=== PATIENT | female | born 1955 | race Caucasian/White ===

== ENCOUNTER 2016-12-01 10:27 | Emergency (ER) | payer BC ==
[~2016-12-01] VITALS: Ht 160 cm; Wt 80.3 kg
[~2016-12-01 10:27] MED LIST: ATOR1TAB18 PO; ATOR1TAB21 PO; DRIS50002 PO; EFFE75CA75 OR; FLUC150T PO; HYDR12.55 PO; HYDR25TA6 OR; INSUH10VL SC; INSULANT SC; LANTINJ4 SC; LEVO75TA4 PO; LIPI20TA OR; LISI-542 PO; LISI5TAB OR; METF500T4 PO; NOVOINJ2 SC; NOVOINJ3 SC; NOVOLOG 100 UNIT/ML SQ; PERI2TAB PO; PLAV75TA38 PO; REGL5TAB2 PO; ROPI0.5T PO; SERT100T OR; SYNT88TA2 PO; TRAZ100T OR; VENL75CA47 PO
[2016-12-01] MEDS ORDERED: ASPI1TAB PO (11:00)
[2016-12-01] MEDS ORDERED: VITA50003 PO (11:00)
[2016-12-01] MEDS ORDERED: LANTINJ4 SC (11:00)
[2016-12-01] MEDS ORDERED: ASPIRIN 81 MG CHEW TABLET PO ONE (12:30)
[2016-12-01 12:45] LABS: BASO % 0.6 % (0.0-1.0); EOS # 0.2 K/mm3 (0.0-0.50); EOS % 3.3 % (0.0-3.0); LARGE UNSTAINED CELL # 0.1 K/mm3 (0.0-0.4); LARGE UNSTAINED CELL % 1.8 % (0.0-4.0); LYMPH # 0.5 K/mm3 (1.5-4.5); LYMPH % 9.1 % (24.0-44.0); MEAN CORPUSCULAR HEMOGLOBIN 34.4 pg (27.0-33.0); MEAN CORPUSCULAR HGB CONC 32.3 g/dl (32.0-36.5); MEAN CORPUSCULAR VOLUME 106.7 fl (80.0-96.0); MONO # 0.3 K/mm3 (0.0-0.8); MONO % 6.2 % (0.0-5.0); NEUTROPHILS # 3.8 K/mm3 (1.8-7.7); PLATELET COUNT, AUTOMATED 206 k/mm3 (150-450); RED CELL DISTRIBUTION WIDTH 13.7 % (11.5-14.5); WHITE BLOOD COUNT 4.8 K/mm3 (4.0-10.0)
[2016-12-01 12:54] LABS: ANION GAP 23 MEQ/L (8-16); BLOOD UREA NITROGEN 16 MG/DL (7-18); CALCIUM LEVEL 8.3 MG/DL (8.5-10.1); CARBON DIOXIDE LEVEL 14 MEQ/L (21-32); CHLORIDE LEVEL 99 MEQ/L (98-107); CREATININE FOR GFR 1.03 MG/DL (0.55-1.02); GLOMERULAR FILTRATION RATE 58.6 (>51); POTASSIUM SERUM 3.9 MEQ/L (3.5-5.1); SODIUM LEVEL 136 MEQ/L (136-145)
[2016-12-01 13:08] LABS: GLUCOSE, FASTING 449 MG/DL (70-105)
[2016-12-01] MEDS ORDERED: ISOVUE-370 76% 100ML VIAL (Q9967) As Ordered ONE (13:10)
[2016-12-01] MEDS ORDERED: HumuLIN R (REGULAR) INSULIN (NovoLIN R) **100U/ML** PER UNIT IV ONE (13:30)
--- NOTE | 2016-12-01 14:03 | REP ---
PORTABLE CHEST X-RAY: Single view. HISTORY: Chest pain. Comparison study: June 06, 2016. FINDINGS: EKG monitoring electrodes overlie the chest. The lungs are well inflated and free of infiltrate. Heart size is normal. Pleural angles are sharp. There is a zone of linear fibrosis versus discoid atelectasis in the right base. Lung mendoza are otherwise clear. No bony abnormality is seen. IMPRESSION: Linear density right base consistent with plate-like atelectasis or scarring. Otherwise no acute disease. Signed by Tyshawn Milton MD 12/01/2016 03:18 P
--- NOTE | 2016-12-01 14:12 | REP ---
CT ANGIOGRAM CHEST: 12/01/2016 CLINICAL HISTORY: 60-year female with chest pain, back pain. COMPARISON: Portable chest today and 06/06/2016. TECHNIQUE: The patient received a bolus of Isovue 370, 75 mL with thick slab MIP coronal and sagittal reconstructions. FINDINGS: There is dependent atelectatic change bilaterally. Some linear atelectasis in both lower lung zones. Minimal. No dense consolidation or parenchymal mass. No pulmonary nodule. There is no effusion or pneumothorax. The heart is not enlarged. There is no pericardial thickening or effusion. The aorta is without aneurysm or dissection. The main, right and left pulmonary arteries and the mediastinum are without filling defects. The lobar, segmental and subsegmental arteries are without filling defect. There is no axillary or supraclavicular mass. No hiatal hernia. In the upper abdomen, the visualized portions of liver and spleen are unremarkable. Tail of the pancreas is seen and intact. That portion of splenic flexure included is unremarkable. The bone windows show sternum, manubrium, medial clavicles, humeral heads, scapulae, ribs and spine without fracture or destructive lesion. There are marginal osteophytes throughout the mid and lower thoracic spine. IMPRESSION: 1. There is some minor basilar fibrotic change and dependent atelectasis without pleural effusion, acute infiltrate, pulmonary nodule or parenchymal mass. No pleural effusion or pneumothorax. 2. No CT evidence of pulmonary thromboembolism. 3. No CT evidence of aortic aneurysm or dissection. 4. No pathologic sized mediastinal or hilar adenopathy, acute bony finding or abnormalities of the visualized upper abdomen. Signed by Luis Carlos Lees MD 12/01/2016 05:14 P
[2016-12-01] MEDS ORDERED: NS 500 ML IV ONE (14:45)
[2016-12-01 15:05] LABS: VENOUS BASE EXCESS -3.3 (-2.0-2.0); VENOUS O2 SATURATION 97.4 % (60.0-80.0); VENOUS PARTIAL PRESSURE CO2 36.6 mmHg (38.0-50.0); VENOUS PARTIAL PRESSURE O2 94.8 mmHg (30.0-50.0); VENOUS STANDARD HCO3 21.7 MEQ/L; VENOUS TOTAL CO2 22.3 MEQ/L (24.0-28.0)
[2016-12-01 15:55] VITALS: BP 102/53
--- NOTE | 2016-12-02 08:12 | ECGEPIP ---
Stationary ECG Study [facility] - ED Test Date: 2016-12-01 Pat Name: MADELYN GUILLEN Department: Room: - Gender: F [employer] Developer: connor : 1955 Requested By: Adi Lorenzana Order Number: [id number] Reading MD: Adi Clemente Measurements Intervals [place] Rate: 96 P: 50 OR: 131 QRS: -2 QRSD: 82 T: 29 QT: 348 QTc: 441 Interpretive Statements SINUS RHYTHM LEFT ATRIAL ENLARGEMENT Electronically Signed On 12-02-2016 8:12:23 EDT by Adi Clemente
== END 2016-12-01 16:11 | disposition home or self-care (01) ==
LOC: M ED 10:51
DX: R07.9 Chest pain, unspecified (principal); I25.2 Old myocardial infarction; E11.9 Type 2 diabetes mellitus without complications; I10 Essential (primary) hypertension; E78.5 Hyperlipidemia, unspecified; Z87.891 Personal history of nicotine dependence; Z79.82 Long term (current) use of aspirin; Z79.4 Long term (current) use of insulin; Z79.899 Other long term (current) drug therapy
CPT/HCPCS: 36415; 71010; 71275; 80048; 82550; 82553; 82803; 85025; 93005; 93041; 99285; Q9967

== ENCOUNTER → 2016-12-04 | Outpatient (REF) | payer BC ==
[~2016-12-04] MED LIST changes: +ASPI1TAB PO; +VITA50003 PO
[2016-12-04 17:27] LABS: ALBUMIN 3.3 GM/DL (3.2-5.2); ANION GAP 12 MEQ/L (8-16); BLOOD UREA NITROGEN 14 MG/DL (7-18); CALCIUM LEVEL 8.7 MG/DL (8.5-10.1); CARBON DIOXIDE LEVEL 27 MEQ/L (21-32); CHLORIDE LEVEL 102 MEQ/L (98-107); CHOLESTEROL LEVEL 215 MG/DL (<200); CREATININE FOR GFR 0.93 MG/DL (0.55-1.02); FREE T4 0.96 NG/DL (0.76-1.46); GLOMERULAR FILTRATION RATE > 60.0 (>51); GLUCOSE, FASTING 73 MG/DL (70-105); PHOSPHORUS LEVEL 1.8 MG/DL (2.5-4.9); POTASSIUM SERUM 3.6 MEQ/L (3.5-5.1); SODIUM LEVEL 141 MEQ/L (136-145); TRIGLYCERIDES LEVEL 186 MG/DL (<150)
== END ==
LOC: M SFHCPLAZ 14:36
DX: R07.9 Chest pain, unspecified (principal); E03.9 Hypothyroidism, unspecified; E10.10 Type 1 diabetes mellitus with ketoacidosis without coma; E78.5 Hyperlipidemia, unspecified; R05 Cough

== ENCOUNTER → 2017-02-24 | Outpatient (CLI) | payer BC ==
--- NOTE | 2017-02-25 03:48 | REP ---
Clinical: Lumbar with right sided sciatica pain. Technique: AP, lateral, bilateral oblique, flexion/extension, and coned-down views of the lumbosacral spine. Findings: Alignment and lordosis maintained. No acute fracture / compression injury or subluxation. Moderate multilevel degenerative changes are appreciated including early anterior spurring, endplate sclerosis, disc space narrowing, and hypertrophic facet changes. Findings are most pronounced at the L5-S1 and L4-L5 levels. Atherosclerotic changes of the aorta noted. Impression: Moderate multilevel degenerative changes primarily involving the L4-S1 levels. Signed by Michael Wynn MD 02/25/2017 03:39 A
--- NOTE | 2017-02-25 04:48 | REP ---
Clinical: Acute right-sided sciatica. Technique: AP view of the pelvis with neutral and frog lateral views of the right hip. Findings: No acute fracture dislocation. Mild symmetric degenerative changes of the hips includes increase sclerosis to the acetabular roof with minimal joint space narrowing. Sacroiliac joints appear relatively normal for age and symmetric. Surrounding soft tissues are unremarkable. Impression: Symmetric age-related changes. Signed by Michael Wynn MD 02/25/2017 04:39 A
== END ==
LOC: M RAD 11:53
PROVIDERS: ATTEND Family Medicine
DX: M54.41 Lumbago with sciatica, right side (principal)

== ENCOUNTER → 2017-09-09 | Outpatient (REF) | payer BC ==
[~2017-09-09] MED LIST changes: -ATOR1TAB18 PO; +ATOR80TA59 PO; +PLAV1TAB2 PO; -PLAV75TA38 PO; +VITA1CAP40 PO; -VITA50003 PO
[2017-09-09 18:53] LABS: HEPATITIS B SURFACE ANTIBODY NEGATIVE (POSITIVE)
[2017-09-09 20:12] LABS: FREE T4 0.75 NG/DL (0.76-1.46)
== END ==
LOC: M SFHCPLAZ 15:00
DX: E03.9 Hypothyroidism, unspecified (principal); E10.10 Type 1 diabetes mellitus with ketoacidosis without coma; Z11.59 Encounter for screening for other viral diseases; E55.9 Vitamin D deficiency, unspecified

== ENCOUNTER → 2018-06-09 | Outpatient (REF) | payer BC | LOC: M SMT 17:21 | DX: R35.0 Frequency of micturition (principal) ==

== ENCOUNTER → 2018-06-10 | Outpatient (REF) | payer BC ==
[2018-06-10 12:30] LABS: FREE T4 1.33 NG/DL (0.76-1.46); THYROID STIMULATING HORMONE 0.412 uIU/ML (0.358-3.740)
== END ==
LOC: M SFHCPLAZ 09:11
DX: E03.9 Hypothyroidism, unspecified (principal)
CPT/HCPCS: 84443

== ENCOUNTER → 2018-10-06 | Outpatient (REF) | payer BC ==
[~2018-10-06] MED LIST changes: -DRIS50002 PO; +DRIS50003 PO; -VITA1CAP40 PO; +VITA50005 PO
[2018-10-06 17:00] LABS: MALB URINE SIEMENS 13.9 MG/L; MAU/CREAT RATIO 11.3 MCG/MG (0.0-30.0)
== END ==
LOC: M SFHCPLAZ 14:15
DX: E11.9 Type 2 diabetes mellitus without complications (principal)

== ENCOUNTER → 2019-08-25 | Outpatient (REF) | payer BC ==
[~2019-08-25] MED LIST changes: -ASPI1TAB PO; +ASPI81TA26 PO; +METF-791 PO; -METF500T4 PO
[2019-08-25 17:18] LABS: HEMOGLOBIN A1c 8.2 %
[2019-08-25 17:30] LABS: CHOLESTEROL RISK RATIO 2.861 (<5)
[2019-08-25 17:40] LABS: MALB URINE SIEMENS 38.5 MG/L; MAU/CREAT RATIO 12.9 MCG/MG (0.0-30.0)
== END ==
LOC: M SFHCPLAZ 14:10
PROVIDERS: ATTEND Family Medicine
DX: E10.10 Type 1 diabetes mellitus with ketoacidosis without coma (principal); E78.5 Hyperlipidemia, unspecified

== ENCOUNTER → 2019-09-28 | Outpatient (REF) | payer BC ==
[2019-09-28 19:18] LABS: BLOOD UREA NITROGEN 14 MG/DL (7-18); CARBON DIOXIDE LEVEL 31 MEQ/L (21-32); CHLORIDE LEVEL 103 MEQ/L (98-107); CREATININE FOR GFR 0.81 MG/DL (0.55-1.30); GLOMERULAR FILTRATION RATE > 60.0 (>45); GLUCOSE, FASTING 30 MG/DL (70-100); SODIUM LEVEL 139 MEQ/L (136-145)
== END ==
LOC: M SFHCPLAZ 15:39
DX: E11.65 Type 2 diabetes mellitus with hyperglycemia (principal)

== ENCOUNTER → 2019-11-14 | Outpatient (CLI) | payer BC ==
[~2019-11-14] MED LIST changes: -ROPI0.5T PO; +ROPI0.5T3 PO
--- NOTE | 2019-11-14 17:09 | REPMRS ---
Patient History The patient states she has not had a clinical breast exam in over a year. No known family history of cancer. Digital Woman Screen Mammo: November 14, 2019 - Exam #: [id number] Bilateral CC and MLO view(s) were taken. Technologist: Tatinana Angel, Technologist Prior study comparison: August 11, 2016, digital woman screen mammo performed at [facility]. September 19, 2013, digital woman screen mammo performed at [facility]. May 30, 2012, digital woman screen mammo performed at [facility]. FINDINGS: There are scattered fibroglandular densities. There has been no change in the appearance of the mammogram from the prior studies. There is a mild amount of scattered fibroglandular density which is fairly symmetric. There is no interval development of dominant mass, architectural distortion, or grouped microcalcification suggestive of malignancy. 3-D tomosynthesis shows no additional findings. Assessment: BI-RADS/ACR category 1 mammogram. Negative Mammogram. Recommendation Routine screening mammogram of both breasts in 1 year (for women over age 40). This patient's Lifetime Breast Cancer Risk is estimated at 6.3 %. This mammogram was interpreted with the aid of an FDA-approved computer-aided dectection system. Electronically Signed By: David Milton MD 11/14/19 [id number]
== END ==
LOC: M WHC 14:45
PROVIDERS: ATTEND Hospitalist
DX: Z12.31 Encounter for screening mammogram for malignant neoplasm of breast (principal)

== ENCOUNTER → 2020-08-01 | Outpatient (REF) | payer OTHER ==
[~2020-08-01] MED LIST changes: -METF-791 PO; +METF-838 PO
[2020-08-01 18:02] LABS: HEMOGLOBIN A1c 7.9 %
[2020-08-01 18:13] LABS: ALBUMIN 3.7 GM/DL (3.2-5.2); ALT/SGPT 35 U/L (12-78); BILIRUBIN,TOTAL 0.6 MG/DL (0.2-1.0); BLOOD UREA NITROGEN 18 MG/DL (7-18); CALCIUM LEVEL 9.1 MG/DL (8.8-10.2); CARBON DIOXIDE LEVEL 28 MEQ/L (21-32); CHLORIDE LEVEL 102 MEQ/L (98-107); CHOLESTEROL LEVEL 136 MG/DL (<200); CHOLESTEROL RISK RATIO 2.158 (<5); CREATININE FOR GFR 0.85 MG/DL (0.55-1.30); GLOMERULAR FILTRATION RATE > 60.0 (>45); GLUCOSE, FASTING 233 MG/DL (70-100); HDL CHOLESTEROL 63 MG/DL (>40); LDL CHOLESTEROL 62 MG/DL (<100); MAGNESIUM LEVEL 1.9 MG/DL (1.8-2.4); NON-HDL-C 73 MG/DL; POTASSIUM SERUM 4.3 MEQ/L (3.5-5.1); SODIUM LEVEL 138 MEQ/L (136-145); TOTAL PROTEIN 6.7 GM/DL (6.4-8.2); TRIGLYCERIDES LEVEL 57 MG/DL (<150)
[2020-08-01 18:16] LABS: MALB URINE SIEMENS 15.6 MG/L
== END ==
LOC: M SFHCPLAZ 14:07
DX: E11.9 Type 2 diabetes mellitus without complications (principal); R25.2 Cramp and spasm

== ENCOUNTER → 2020-12-13 | Outpatient (REF) | payer OTHER ==
[~2020-12-13] MED LIST changes: -LISI-542 PO; +LISI-898 PO
== END ==
LOC: M SFHCPLAZ 14:31
PROVIDERS: ATTEND Family Medicine
DX: N17.9 Acute kidney failure, unspecified (principal); E11.65 Type 2 diabetes mellitus with hyperglycemia

== ENCOUNTER → 2021-01-13 | Outpatient (CLI) | payer OTHER ==
[2021-01-13 16:44] LABS: ALBUMIN 3.3 GM/DL (3.2-5.2); ALT/SGPT 36 U/L (12-78); BILIRUBIN,TOTAL 0.6 MG/DL (0.2-1.0); BLOOD UREA NITROGEN 15 MG/DL (7-18); CALCIUM LEVEL 8.8 MG/DL (8.8-10.2); CARBON DIOXIDE LEVEL 30 MEQ/L (21-32); CHLORIDE LEVEL 103 MEQ/L (98-107); CREATININE FOR GFR 0.77 MG/DL (0.55-1.30); GLOMERULAR FILTRATION RATE > 60.0 (>45); GLUCOSE, FASTING 255 MG/DL (70-100); POTASSIUM SERUM 4.3 MEQ/L (3.5-5.1); SODIUM LEVEL 139 MEQ/L (136-145); TOTAL PROTEIN 6.4 GM/DL (6.4-8.2)
[2021-01-13 16:47] LABS: HEMOGLOBIN A1c 7.4 %
[2021-01-13 16:59] LABS: MALB URINE SIEMENS 9.3 MG/L; MAU/CREAT RATIO 5.8 MCG/MG (0.0-30.0)
== END ==
LOC: M WUC 14:04
PROVIDERS: ATTEND Hospitalist
DX: N17.9 Acute kidney failure, unspecified (principal); E11.65 Type 2 diabetes mellitus with hyperglycemia

== ENCOUNTER → 2021-03-05 | Outpatient (REF) | payer OTHER | LOC: M SFHCPLAZ 10:06 | PROVIDERS: ATTEND Family Medicine | DX: E03.9 Hypothyroidism, unspecified (principal) ==

== ENCOUNTER → 2021-05-17 | Outpatient (CLI) | payer OTHER ==
[~2021-05-17] MED LIST changes: +JARD1TAB PO; +TRUL0.5I SC
== END ==
LOC: M LABSMTC 10:32
PROVIDERS: ATTEND Anesthesiology
DX: Z01.812 Encounter for preprocedural laboratory examination (principal)

== ENCOUNTER 2021-05-22 09:49 | Day surgery (SDC) | payer OTHER ==
[~2021-05-22] VITALS: Ht 160 cm; Wt 75.7 kg
[~2021-05-22 09:49] MED LIST changes: +NS 1,000 ML IV ONE
[2021-05-22] MEDS ORDERED: propofoL 500 MG/50 ML VIAL As Ordered ONE (10:20)
[2021-05-22] MEDS ORDERED: LIDOCAINE 2% 100MG/5ML SDV (FOR ANES.) As Ordered ONE (12:30)
--- NOTE | 2021-05-22 12:41 | ROOR ---
Patient Name: Delia Snyder Procedure Date: 05/22/2021 12:13 PM Date of : 1955 Age: 65 Room: [facility] Gender: Female Note Status: Finalized Procedure: Colonoscopy Indications: Screening for colorectal malignant neoplasm, Last colonoscopy: 2007 Providers: Lalit Johnson MD Referring MD: ABDIFATAH SALINAS MD Requesting Provider: Medicines: Monitored Anesthesia Care Complications: No immediate complications. Procedure: Pre-Anesthesia Assessment: - Prior to the procedure, a History and Physical was performed, and patient medications and allergies were reviewed. The patient is competent. The risks and benefits of the procedure and the sedation options and risks were discussed with the patient. All questions were answered and informed consent was obtained. Patient identification and proposed procedure were verified by the physician, the nurse and the anesthesiologist in the endoscopy suite. Mental Status Examination: alert and oriented. Airway Examination: normal oropharyngeal airway and neck mobility. Prophylactic Antibiotics: The patient does not require prophylactic antibiotics. Prior Anticoagulants: The patient has taken no previous anticoagulant or antiplatelet agents. ASA Grade Assessment: III - A patient with severe systemic disease. After reviewing the risks and benefits, the patient was deemed in satisfactory condition to undergo the procedure. The anesthesia plan was to use monitored anesthesia care (MAC). Immediately prior to administration of medications, the patient was re-assessed for adequacy to receive sedatives. The heart rate, respiratory rate, oxygen saturations, blood pressure, adequacy of pulmonary ventilation, and response to care were monitored throughout the procedure. The physical status of the patient was re-assessed after the procedure. The Colonoscope was introduced through the anus and advanced to the cecum, identified by appendiceal orifice and ileocecal valve. The colonoscopy was performed without difficulty. The patient tolerated the procedure well. The quality of the bowel preparation was good. Findings: The perianal and digital rectal examinations were normal. The colon (entire examined portion) appeared normal. Impression: - The entire examined colon is normal. - No specimens collected. Recommendation: - Discharge patient to home. - Resume previous diet. - Continue present medications. - Repeat colonoscopy in 10 years for screening purposes. Procedure Code(s): --- Professional --- 78670, Colonoscopy, flexible; diagnostic, including collection of specimen(s) by brushing or washing, when performed (separate procedure) Diagnosis Code(s): --- Professional --- Z12.11, Encounter for screening for malignant neoplasm of colon CPT copyright 2019 [employer]. All rights reserved. The codes documented in this report are preliminary and upon remote inpatient coder review may be revised to meet current compliance requirements. Lalit Johnson MD Lalit Johnson MD 05/22/2021 12:40:49 PM Electronically signed by Lalit Johnson MD Number of Addenda: 0 Note Initiated On: 05/22/2021 12:13 PM Estimated Blood Loss: Estimated blood loss: none.
[2021-05-22 13:00] VITALS: BP 124/67
== END 2021-05-22 13:10 | disposition home or self-care (01) ==
LOC: M OPP 09:49
PROVIDERS: ATTEND Surgery
DX: Z12.11 Encounter for screening for malignant neoplasm of colon (principal); E11.9 Type 2 diabetes mellitus without complications; E03.9 Hypothyroidism, unspecified; Z79.4 Long term (current) use of insulin; Z79.82 Long term (current) use of aspirin; Z79.899 Other long term (current) drug therapy

== ENCOUNTER → 2021-08-27 | Outpatient (REF) | payer OTHER ==
[~2021-08-27] MED LIST changes: -NS 1,000 ML IV ONE
== END ==
LOC: M SFHCPLAZ 10:53
PROVIDERS: ATTEND Family Medicine
DX: Z53.9 Procedure and treatment not carried out, unspecified reason (principal); E11.65 Type 2 diabetes mellitus with hyperglycemia; E03.9 Hypothyroidism, unspecified

== ENCOUNTER → 2021-08-28 | Outpatient (CLI) | payer OTHER ==
[2021-08-28 11:18] LABS: BASO % 0.6 % (0.0-1.0); EOS # 0.5 10^3/uL (0.0-0.5); EOS % 9.8 % (0.0-3.0); HEMATOCRIT 45.6 % (36.0-47.0); HEMOGLOBIN 14.9 g/dl (12.0-15.5); LYMPH # 0.9 10^3/uL (1.5-5.0); MEAN CORPUSCULAR HGB CONC 32.7 g/dl (32.0-36.5); MONO # 0.5 10^3/uL (0.0-0.8); MONO % 11.1 % (2.0-8.0); NEUTROPHILS # 2.8 10^3/uL (1.5-8.5); NEUTROPHILS % 59.3 % (36.0-66.0); PLATELET COUNT, AUTOMATED 228 10^3/uL (150-450); WHITE BLOOD COUNT 4.7 10^3/uL (4.0-10.0)
[2021-08-28 12:23] LABS: FREE T4 1.43 NG/DL (0.76-1.46); THYROID STIMULATING HORMONE 0.055 uIU/ML (0.358-3.740)
[2021-08-28 13:22] LABS: CREATININE, URINE 60.8 MG/DL; MALB URINE SIEMENS < 5.0 MG/L; MAU/CREAT RATIO 8.2 MCG/MG (0.0-30.0)
[2021-08-28 14:10] LABS: HEMOGLOBIN A1c 8.3 %
== END ==
LOC: M PLALAB 09:21
PROVIDERS: ATTEND Student in an Organized Health Care Education/Training Program
DX: E11.65 Type 2 diabetes mellitus with hyperglycemia (principal); E03.9 Hypothyroidism, unspecified

== ENCOUNTER → 2021-09-25 | Outpatient (CLI) | payer OTHER | LOC: M WHC 14:27 | PROVIDERS: ATTEND Student in an Organized Health Care Education/Training Program | DX: E55.9 Vitamin D deficiency, unspecified (principal) ==

== ENCOUNTER → 2021-10-04 | Outpatient (REF) ==
[~2021-10-04] MED LIST changes: -LISI-898 PO; +LISI5TAB11 PO
== END ==
LOC: M LABSMTC 12:42
PROVIDERS: ATTEND Pediatrics
DX: Z20.822 Contact with and (suspected) exposure to COVID-19 (principal)

== ENCOUNTER → 2021-12-03 | Outpatient (REF) | payer OTHER ==
[~2021-12-03] MED LIST changes: -FLUC150T PO; +FLUC150T9 PO
== END ==
LOC: M SFHCPLAZ 10:12
PROVIDERS: ATTEND Student in an Organized Health Care Education/Training Program
DX: R87.619 Unspecified abnormal cytological findings in specimens from cervix uteri (principal); Z12.4 Encounter for screening for malignant neoplasm of cervix

== ENCOUNTER 2022-07-11 10:37 | Emergency (ER) | payer OTHER ==
[~2022-07-11] VITALS: Ht 160 cm; Wt 77.9 kg
[2022-07-11] MEDS ORDERED: ASPIRIN 81 MG CHEW TABLET PO ONE (11:05)
[2022-07-11] MEDS ORDERED: MORPHINE 2 MG/ML 1ML VIAL IV PRN (11:05)
[2022-07-11] MEDS ORDERED: ONDANSETRON 4MG 2ML VIAL IV ONE (11:05)
[2022-07-11] MEDS ORDERED: ISOVUE-370 76% 100ML VIAL As Ordered ONE (11:58)
[2022-07-11 12:00] VITALS: BP 132/63
[2022-07-11 12:01] LABS: BASO % 0.3 % (0.0-1.0); EOS # 0.1 10^3/uL (0.0-0.5); EOS % 1.3 % (0.0-3.0); HEMATOCRIT 46.5 % (36.0-47.0); HEMOGLOBIN 15.6 g/dl (12.0-15.5); LYMPH # 0.6 10^3/uL (1.5-5.0); LYMPH % 6.4 % (24.0-44.0); MEAN CORPUSCULAR HEMOGLOBIN 31.8 pg (27.0-33.0); MEAN CORPUSCULAR HGB CONC 33.5 g/dl (32.0-36.5); MEAN CORPUSCULAR VOLUME 94.9 fl (80.0-96.0); MONO # 0.4 10^3/uL (0.0-0.8); MONO % 4.4 % (2.0-8.0); NEUTROPHILS # 8.1 10^3/uL (1.5-8.5); NEUTROPHILS % 87.4 % (36.0-66.0); WHITE BLOOD COUNT 9.3 10^3/uL (4.0-10.0)
[2022-07-11 12:09] LABS: INR 0.88; PROTHROMBIN TIME 12.1 SECONDS (12.5-14.5)
[2022-07-11 12:32] LABS: RSV AMPLIFICATION NEGATIVE (NEGATIVE)
[2022-07-11 12:35] LABS: CK-MB VALUE MASS 1.6 NG/ML (<3.6); MB/CK RELATIVE INDEX 1.93 (< OR =4)
[2022-07-11 12:36] LABS: PARTIAL THROMBOPLASTIN TIME < 20.0 SECONDS (24.8-34.2)
[2022-07-11 12:56] LABS: ALBUMIN 3.6 GM/DL (3.2-5.2); ALT/SGPT 23 U/L (12-78); BILIRUBIN,DIRECT 0.2 MG/DL (0.0-0.2); BILIRUBIN,TOTAL 0.9 MG/DL (0.2-1.0); BLOOD UREA NITROGEN 15 MG/DL (7-18); CALCIUM LEVEL 9.3 MG/DL (8.8-10.2); CARBON DIOXIDE LEVEL 22 MEQ/L (21-32); CHLORIDE LEVEL 103 MEQ/L (98-107); CREATININE FOR GFR 0.99 MG/DL (0.55-1.30); FREE T4 1.34 NG/DL (0.76-1.46); GLOMERULAR FILTRATION RATE > 60.0 (>45); GLUCOSE, FASTING 196 MG/DL (70-100); LIPASE 51 U/L (73-393); NT-PRO BNP 164 PG/ML (<125); POTASSIUM SERUM 3.9 MEQ/L (3.5-5.1); SODIUM LEVEL 139 MEQ/L (136-145)
[2022-07-11 14:11] LABS: CK-MB VALUE MASS 1.6 NG/ML (<3.6); MB/CK RELATIVE INDEX 2.81 (< OR =4)
[2022-07-11] MEDS ORDERED: ACETAMINOPHEN TAB 650MG DOSE (2X325MG) PO ONE (14:25)
[2022-07-11] MEDS ORDERED: IBUPROFEN 600MG TAB PO ONE (14:25)
[2022-07-12] MEDS ORDERED: JARD1TAB3 PO (16:07)
[2022-07-12] MEDS ORDERED: ADME100I SC (16:07)
[2022-07-12] MEDS ORDERED: BASA100I SC (16:07)
[2022-07-12] MEDS ORDERED: VITA200032 PO (16:07)
[2022-07-12] MEDS ORDERED: LEVO125T4 PO (16:07)
[2022-07-12] MEDS ORDERED: ASPI81CH48 PO (16:07)
== END 2022-07-11 14:54 | disposition home or self-care (01) ==
LOC: M ED 10:37
DX: R07.9 Chest pain, unspecified (principal); K80.20 Calculus of gallbladder without cholecystitis without obstruction; R00.0 Tachycardia, unspecified; E11.9 Type 2 diabetes mellitus without complications; I10 Essential (primary) hypertension; E78.5 Hyperlipidemia, unspecified; Z86.79 Personal history of other diseases of the circulatory system; Z87.891 Personal history of nicotine dependence; Z79.82 Long term (current) use of aspirin; Z79.4 Long term (current) use of insulin; Z79.899 Other long term (current) drug therapy
CPT/HCPCS: 71045; 71275; 74177; 80047; 80048; 80076; 82550; 82553; 83690; 83880; 84439; 84443; 85025; 85610; 85730; 87631; 93005; 93041; 94760; 96374; 99285; J2270; J2405; Q9967

== ENCOUNTER 2022-07-12 14:21 | Inpatient (IN) | payer OTHER ==
[~2022-07-12] VITALS: Ht 157.5 cm; Wt 82.2 kg
[~2022-07-12 14:21] MED LIST changes: +CLOP75TA99 PO; -PLAV1TAB2 PO
[2022-07-12] MEDS ORDERED: NS 500 ML IV ONE (14:45)
[2022-07-12 15:04] LABS: BASO % 0.2 % (0.0-1.0); HEMOGLOBIN 14.6 g/dl (12.0-15.5); LYMPH # 0.7 10^3/uL (1.5-5.0); MEAN CORPUSCULAR HEMOGLOBIN 31.5 pg (27.0-33.0); MEAN CORPUSCULAR HGB CONC 32.4 g/dl (32.0-36.5); MEAN CORPUSCULAR VOLUME 97.2 fl (80.0-96.0); MONO # 0.8 10^3/uL (0.0-0.8); MONO % 6.3 % (2.0-8.0); NEUTROPHILS # 10.6 10^3/uL (1.5-8.5); NEUTROPHILS % 87.2 % (36.0-66.0); PLATELET COUNT, AUTOMATED 242 10^3/uL (150-450); RED BLOOD COUNT 4.63 10^6/uL (4.00-5.40); WHITE BLOOD COUNT 12.2 10^3/uL (4.0-10.0)
[2022-07-12 15:23] LABS: HEMOGLOBIN A1c 8.4 %
[2022-07-12 15:24] LABS: ABG HCO3 8.2 MEQ/L (22.0-26.0); ABG PARTIAL PRESSURE O2 131.5 mmHg (75.0-100.0); ABG TOTAL CO2 8.8 MEQ/L (23.0-31.0); ABG pH (ARTERIAL) 7.279 UNITS (7.350-7.450)
[2022-07-12 15:25] LABS: ABG BASE EXCESS -15.9 (-2.0-2.0); ABG O2 SATURATION 98.4 % (95.0-99.0); ABG STANDARD HCO3 12.7 MEQ/L (22.0-26.0)
[2022-07-12] MEDS ORDERED: NS 1,000 ML IV ONE ×3 (15:25→20:00)
[2022-07-12] MEDS ORDERED: ONDANSETRON 4MG 2ML VIAL IV ONE (15:30)
[2022-07-12 15:33] LABS: OSMOLALITY SERUM 318 MOSM/KG (280-301)
[2022-07-12 15:38] LABS: RSV AMPLIFICATION NEGATIVE (NEGATIVE)
[2022-07-12 15:42] LABS: CK-MB VALUE MASS 1.1 NG/ML (<3.6); MB/CK RELATIVE INDEX 3.24 (< OR =4)
[2022-07-12 15:49] LABS: ACETAMINOPHEN LEVEL < 2.0 UG/ML (10.0-30.0); ACETONE/KETONE > 46.00 MG/DL (<2.81); ALBUMIN 3.5 GM/DL (3.2-5.2); ALT/SGPT 18 U/L (12-78); BILIRUBIN,DIRECT 0.2 MG/DL (0.0-0.2); BILIRUBIN,TOTAL 0.9 MG/DL (0.2-1.0); ETHYL ALCOHOL (ETHANOL) < 0.003 % (0.000-0.010); LIPASE 48 U/L (73-393); SALICYLATE LEVEL 3.6 MG/DL (5.0-30.0); TOTAL PROTEIN 6.7 GM/DL (6.4-8.2)
[2022-07-12] MEDS ORDERED: JARD1TAB3 PO (16:07)
[2022-07-12] MEDS ORDERED: VITA200032 PO (16:07)
[2022-07-12] MEDS ORDERED: ASPI81CH48 PO (16:07)
[2022-07-12] MEDS ORDERED: BASA100I SC (16:07)
[2022-07-12] MEDS ORDERED: ADME100I SC (16:07)
[2022-07-12] MEDS ORDERED: LEVO125T4 PO (16:07)
[2022-07-12] MEDS ORDERED: HOME MED LIST COMPLETE! XX SCH (16:10)
[2022-07-12] MEDS ORDERED: INSULIN REGULAR IN 0.9 % NACL 100 UNIT in IV 1 EA IV SCH ×4 (16:30→17:30)
[2022-07-12] MEDS ORDERED: INSULIN IV RATE CHANGE DOCUMENTATION ML/HR XX SCH (16:30)
[2022-07-12] MEDS ORDERED: LIDOCAINE 2% 5ML JELLY UROJET TOP ONE (16:35)
[2022-07-12] MEDS ORDERED: PIPERACILLIN/TAZOBACTAM SOD 4.5 GM in D5W MINI-BAG PLUS 50 ML IV ONE (16:40)
[2022-07-12 16:53] LABS: BLOOD UREA NITROGEN 20 MG/DL (7-18); CALCIUM LEVEL 9.3 MG/DL (8.8-10.2); CARBON DIOXIDE LEVEL 8 MEQ/L (21-32); CHLORIDE LEVEL 99 MEQ/L (98-107); CREATININE FOR GFR 1.48 MG/DL (0.55-1.30); GLOMERULAR FILTRATION RATE 37.8 (>45); GLUCOSE, FASTING 381 MG/DL (70-100); POTASSIUM SERUM 5.1 MEQ/L (3.5-5.1); SODIUM LEVEL 135 MEQ/L (136-145)
[2022-07-12] MEDS ORDERED: VANCOMYCIN HCL 1,000 MG, VIAL MATE ADAPTER 1 EACH in NS 250 ML IV SCH (17:55)
[2022-07-12] MEDS ORDERED: VANCOMYCIN HCL 750 MG, VIAL MATE ADAPTER 1 EACH in D5W 250 ML IV ONE ×2 (18:00→19:00)
[2022-07-12] MEDS: D5W/0.45% SODIUM CHLORIDE 1,000 ML IV SCH (19:27)
[2022-07-12] MEDS: INSULIN IV RATE CHANGE DOCUMENTATION ML/HR XX SCH ×3 (20:08→22:59)
[2022-07-12 20:42] VITALS: BP 102/50
[2022-07-12 21:00] VITALS: BP 107/51
[2022-07-12] MEDS ORDERED: ACETAMINOPHEN 1000MG 100ML IV BTL (OFIRMEV) (J0131 PER 10MG) IV ONE (21:00)
[2022-07-12 21:37] LABS: ABG BASE EXCESS -11.9 (-2.0-2.0); ABG HCO3 11.8 MEQ/L (22.0-26.0); ABG O2 SATURATION 98.5 % (95.0-99.0); ABG PARTIAL PRESSURE CO2 22.2 mmHg (35.0-45.0); ABG PARTIAL PRESSURE O2 136.3 mmHg (75.0-100.0); ABG STANDARD HCO3 15.2 MEQ/L (22.0-26.0); ABG TOTAL CO2 12.5 MEQ/L (23.0-31.0); ABG pH (ARTERIAL) 7.345 UNITS (7.350-7.450)
[2022-07-12 22:51] LABS: CALCIUM LEVEL 7.7 MG/DL (8.8-10.2); CREATININE FOR GFR 1.37 MG/DL (0.55-1.30); GLOMERULAR FILTRATION RATE 41.3 (>45); POTASSIUM SERUM 4.9 MEQ/L (3.5-5.1)
[2022-07-13] VITALS (24 sets, daily range): BP systolic 79–124; BP diastolic 39–57
[2022-07-13] MEDS: INSULIN IV RATE CHANGE DOCUMENTATION ML/HR XX SCH ×6 (00:08→06:00)
[2022-07-13] MEDS: D5W/0.45% SODIUM CHLORIDE 1,000 ML IV SCH (00:10)
[2022-07-13 01:17] LABS: CREATININE FOR GFR 1.36 MG/DL (0.55-1.30); GLOMERULAR FILTRATION RATE 41.7 (>45); POTASSIUM SERUM 4.4 MEQ/L (3.5-5.1)
[2022-07-13] MEDS: PIPERACILLIN/TAZOBACTAM SOD 4.5 GM in D5W MINI-BAG PLUS 50 ML IV SCH ×2 (01:18→08:51)
[2022-07-13] MEDS ORDERED: NS 250 ML IV ONE (02:05)
[2022-07-13] MEDS ORDERED: MIDODRINE 5 MG TAB PO ONE (04:00)
[2022-07-13 04:43] LABS: HEMATOCRIT 33.6 % (36.0-47.0); MEAN CORPUSCULAR HEMOGLOBIN 31.7 pg (27.0-33.0); PLATELET COUNT, AUTOMATED 192 10^3/uL (150-450); WHITE BLOOD COUNT 11.5 10^3/uL (4.0-10.0)
[2022-07-13 04:45] LABS: HEMOGLOBIN 11.1 g/dl (12.0-15.5)
[2022-07-13 05:14] LABS: CALCIUM LEVEL 7.7 MG/DL (8.8-10.2); CREATININE FOR GFR 1.27 MG/DL (0.55-1.30); GLOMERULAR FILTRATION RATE 45.1 (>45)
[2022-07-13 05:42] LABS: ALBUMIN 2.6 GM/DL (3.2-5.2); CALCIUM LEVEL 7.6 MG/DL (8.8-10.2); CREATININE FOR GFR 1.24 MG/DL (0.55-1.30); GLOMERULAR FILTRATION RATE 46.4 (>45); PHOSPHORUS LEVEL 2.5 MG/DL (2.5-4.9); POTASSIUM SERUM 4.1 MEQ/L (3.5-5.1)
[2022-07-13] MEDS ORDERED: GLUCAGON INJ 1MG VIAL SC PRN (06:35)
[2022-07-13] MEDS ORDERED: GLUCOSE 4GM CHEW TABLET PO PRN (06:35)
[2022-07-13] MEDS ORDERED: DEXTROSE 50% 50 ML SYRINGE IV PRN (06:35)
[2022-07-13] MEDS: LEVOTHYROXINE 125MCG TABLET (0.125MG) PO SCH (06:54)
[2022-07-13] MEDS: LEVEMIR (INSULIN DETEMIR) 1 UNITS/0.01ML SC SCH ×2 (06:54→22:04)
[2022-07-13] MEDS: INSULIN LISPRO (NovoLOG) PER UNIT SC SCH ×6 (07:44→20:25)
[2022-07-13 08:18] LABS: VANCOMYCIN RANDOM 12.9 UG/ML
[2022-07-13] MEDS: ASPIRIN 81 MG CHEW TABLET PO SCH (08:51)
[2022-07-13] MEDS ORDERED: PANTOPRAZOLE 40MG VIAL IV SCH (09:00)
[2022-07-13] MEDS ORDERED: ENOXAPARIN 30MG/0.3ML SYRINGE (J1650 PER 10MG) SC SCH (09:00)
[2022-07-13] MEDS ORDERED: VANCOMYCIN HCL 750 MG, VIAL MATE ADAPTER 1 EACH in D5W 250 ML IV SCH (10:00)
[2022-07-13] MEDS ORDERED: VANCOMYCIN HCL 500 MG in D5W MINI-BAG PLUS 100 ML IV SCH (11:00)
[2022-07-13] MEDS: PIPERACILLIN/TAZOBACTAM SOD 3.375 GM in D5W MINI-BAG PLUS 50 ML IV SCH (16:54)
[2022-07-13] MEDS: VENLAFAXINE **XR** 75MG CAPSULE PO SCH (22:03)
[2022-07-14] MEDS: PIPERACILLIN/TAZOBACTAM SOD 3.375 GM in D5W MINI-BAG PLUS 50 ML IV SCH ×3 (04:21)
[2022-07-14 05:04] VITALS: BP 121/57
[2022-07-14] MEDS: LEVOTHYROXINE 125MCG TABLET (0.125MG) PO SCH (05:15)
[2022-07-14 07:07] LABS: HEMATOCRIT 34.2 % (36.0-47.0); HEMOGLOBIN 11.4 g/dl (12.0-15.5); MEAN CORPUSCULAR HEMOGLOBIN 31.4 pg (27.0-33.0); MEAN CORPUSCULAR HGB CONC 33.3 g/dl (32.0-36.5); MEAN CORPUSCULAR VOLUME 94.2 fl (80.0-96.0); PLATELET COUNT, AUTOMATED 177 10^3/uL (150-450); RED BLOOD COUNT 3.63 10^6/uL (4.00-5.40); WHITE BLOOD COUNT 6.9 10^3/uL (4.0-10.0)
[2022-07-14] MEDS: INSULIN LISPRO (NovoLOG) PER UNIT SC SCH ×4 (07:52→21:00)
[2022-07-14 07:53] LABS: BLOOD UREA NITROGEN 10 MG/DL (7-18); CALCIUM LEVEL 8.3 MG/DL (8.8-10.2); CARBON DIOXIDE LEVEL 25 MEQ/L (21-32); CHLORIDE LEVEL 111 MEQ/L (98-107); CREATININE FOR GFR 0.77 MG/DL (0.55-1.30); GLOMERULAR FILTRATION RATE > 60.0 (>45); GLUCOSE, FASTING 80 MG/DL (70-100); MAGNESIUM LEVEL 2.2 MG/DL (1.8-2.4); POTASSIUM SERUM 3.3 MEQ/L (3.5-5.1); SODIUM LEVEL 141 MEQ/L (136-145)
[2022-07-14] MEDS ORDERED: POTASSIUM CHLORIDE 10MEQ SR TABLET PO ONE (08:45)
[2022-07-14] MEDS: LEVEMIR (INSULIN DETEMIR) 1 UNITS/0.01ML SC SCH (09:00)
[2022-07-14] MEDS: ASPIRIN 81 MG CHEW TABLET PO SCH (10:10)
[2022-07-14] MEDS: PANTOPRAZOLE 40MG TAB (PROTONIX) PO SCH (10:10)
[2022-07-14] MEDS: ENOXAPARIN 40MG/0.4ML SYRINGE (J1650 PER 10MG) SC SCH (10:11)
[2022-07-14] MEDS: cefTRIAXone SOD 2 GM in D5W MINI-BAG PLUS 50 ML IV SCH (12:46)
[2022-07-14] MEDS: metFORMIN (GLUCOPHAGE) 500MG TAB PO SCH ×2 (12:57→17:38)
[2022-07-14 14:00] VITALS: BP 129/69
[2022-07-14] MEDS ORDERED: metFORMIN (GLUCOPHAGE) 500MG TAB PO SCH (18:00)
[2022-07-14 20:38] VITALS: BP 115/64
[2022-07-14] MEDS: VENLAFAXINE **XR** 75MG CAPSULE PO SCH (21:29)
[2022-07-15] MEDS: LEVOTHYROXINE 125MCG TABLET (0.125MG) PO SCH (05:21)
[2022-07-15 05:56] VITALS: BP 161/74
[2022-07-15 06:09] VITALS: BP 154/78
[2022-07-15 07:26] LABS: BASO % 0.4 % (0.0-1.0); EOS # 0.2 10^3/uL (0.0-0.5); EOS % 3.6 % (0.0-3.0); HEMATOCRIT 37.5 % (36.0-47.0); HEMOGLOBIN 12.6 g/dl (12.0-15.5); LYMPH # 0.8 10^3/uL (1.5-5.0); LYMPH % 13.8 % (24.0-44.0); MEAN CORPUSCULAR HEMOGLOBIN 31.7 pg (27.0-33.0); MEAN CORPUSCULAR HGB CONC 33.6 g/dl (32.0-36.5); MEAN CORPUSCULAR VOLUME 94.2 fl (80.0-96.0); MONO # 0.5 10^3/uL (0.0-0.8); MONO % 8.2 % (2.0-8.0); NEUTROPHILS # 4.1 10^3/uL (1.5-8.5); NEUTROPHILS % 73.8 % (36.0-66.0); PLATELET COUNT, AUTOMATED 158 10^3/uL (150-450); RED BLOOD COUNT 3.98 10^6/uL (4.00-5.40); WHITE BLOOD COUNT 5.6 10^3/uL (4.0-10.0)
[2022-07-15 07:43] VITALS: BP 130/78
[2022-07-15 08:20] LABS: BLOOD UREA NITROGEN 10 MG/DL (7-18); CALCIUM LEVEL 8.3 MG/DL (8.8-10.2); CARBON DIOXIDE LEVEL 26 MEQ/L (21-32); CHLORIDE LEVEL 103 MEQ/L (98-107); CREATININE FOR GFR 0.72 MG/DL (0.55-1.30); GLOMERULAR FILTRATION RATE > 60.0 (>45); GLUCOSE, FASTING 329 MG/DL (70-100); POTASSIUM SERUM 4.4 MEQ/L (3.5-5.1); SODIUM LEVEL 136 MEQ/L (136-145)
[2022-07-15] MEDS: ENOXAPARIN 40MG/0.4ML SYRINGE (J1650 PER 10MG) SC SCH (08:53)
[2022-07-15] MEDS: ASPIRIN 81 MG CHEW TABLET PO SCH (08:53)
[2022-07-15] MEDS: metFORMIN (GLUCOPHAGE) 500MG TAB PO SCH (08:53)
[2022-07-15] MEDS: PANTOPRAZOLE 40MG TAB (PROTONIX) PO SCH (08:53)
[2022-07-15] MEDS: INSULIN LISPRO (NovoLOG) PER UNIT SC SCH ×2 (08:53→12:24)
[2022-07-15] MEDS ORDERED: LEVEMIR (INSULIN DETEMIR) 1 UNITS/0.01ML SC ONE (09:35)
[2022-07-15] MEDS ORDERED: BASA100I SC (10:01)
[2022-07-15] MEDS ORDERED: METF500T13 PO (10:01)
[2022-07-15] MEDS ORDERED: AMOX875T2 PO (10:02)
[2022-07-15] MEDS: cefTRIAXone SOD 2 GM in D5W MINI-BAG PLUS 50 ML IV SCH (10:08)
[2022-07-15 17:07] LABS: ACETONE <.010 g/dL (0.000-0.010); ISOPROPANOL <.010 g/dL (0.000-0.010); METHANOL <.010 g/dL (0.000-0.010)
[2022-07-22 18:09] LABS: ISLET CELL ANTIBODIES Negative (Neg:<1:1)
== END 2022-07-15 15:15 | disposition home or self-care (01) | DRG 420 ==
LOC: M ED 14:21 → M ED INP 17:23 → ENRESERV 18:54 → M ICU 19:53 → M MS5PR 07-13 20:08
PROVIDERS: ADMIT Internal Medicine Pulmonary Disease; ATTEND Internal Medicine
DX: E11.10 Type 2 diabetes mellitus with ketoacidosis without coma (principal); G93.41 Metabolic encephalopathy; N17.9 Acute kidney failure, unspecified; I10 Essential (primary) hypertension; E78.00 Pure hypercholesterolemia, unspecified; F32.A Depression, unspecified; D72.829 Elevated white blood cell count, unspecified; E03.9 Hypothyroidism, unspecified; Z79.82 Long term (current) use of aspirin; Z79.4 Long term (current) use of insulin; Z79.890 Hormone replacement therapy; Z79.84 Long term (current) use of oral hypoglycemic drugs; Z79.899 Other long term (current) drug therapy; N39.0 Urinary tract infection, site not specified; E87.6 Hypokalemia; E11.319 Type 2 diabetes mellitus with unspecified diabetic retinopathy without macular edema; E11.43 Type 2 diabetes mellitus with diabetic autonomic (poly)neuropathy

== ENCOUNTER → 2022-08-05 | Outpatient (REF) | payer OTHER ==
[~2022-08-05] MED LIST changes: +ADME100I SC; +AMOX875T2 PO; +ASPI81CH48 PO; +BASA100I SC; +JARD1TAB3 PO; +LEVO125T4 PO; +METF500T13 PO; +VITA200032 PO
[2022-08-05 18:53] LABS: APPEARANCE, URINE MANUAL HAZY (CLEAR); COLOR, URINE MANUAL YELLOW (YELLOW)
[2022-08-05 18:56] LABS: BILIRUBIN, URINE MANUAL NEGATIVE (NEGATIVE); BLOOD URINE MANUAL POSITIVE (NEGATIVE); GLUCOSE, URINE (UA) MANUAL 4+(1000 MG/DL) mg/dL (NEGATIVE); KETONE, URINE MANUAL NEGATIVE (NEGATIVE); LEUKOCYTE ESTERASE, URINE MAN POSITIVE (NEGATIVE); NITRITE, URINE MANUAL NEGATIVE (NEGATIVE); PROTEIN, URINE MANUAL TRACE mg/dL (NEGATIVE); UROBILINOGEN, URINE MANUAL NORMAL (NORMAL)
[2022-08-05 19:17] LABS: WBC, URINE TNTC /hpf (0-3)
[2022-08-05 19:18] LABS: AMORPHOUS SEDIMENT, URINE SMALL AMOUNT (NEGATIVE); BACTERIA, URINE NONE SEEN; CALCIUM OXALATE CRYSTALS,URINE SMALL AMOUNT /hpf; HYALINE CAST, URINE NONE SEEN /lpf (0-1); MUCUS, URINE SMALL AMOUNT (NEGATIVE); SQUAMOUS EPITHELIAL CELL URINE SMALL AMOUNT /hpf (SMALL AMT); YEAST, URINE LARGE AMOUNT
== END ==
LOC: M SFHCLERA 08:33
PROVIDERS: ATTEND Physician Assistant
DX: R10.11 Right upper quadrant pain (principal)

== ENCOUNTER → 2022-09-24 | Outpatient (REF) | payer OTHER | LOC: M SFHCLERA 09:39 | PROVIDERS: ATTEND Physician Assistant | DX: Z53.9 Procedure and treatment not carried out, unspecified reason (principal) ==

== ENCOUNTER → 2022-10-22 | Outpatient (REF) | payer OTHER ==
[2022-10-22 12:39] LABS: BASO # 0.1 10^3/uL (0.0-0.2); BASO % 0.8 % (0.0-1.0); EOS # 0.5 10^3/uL (0.0-0.5); EOS % 6.9 % (0.0-3.0); HEMATOCRIT 43.2 % (36.0-47.0); HEMOGLOBIN 14.2 g/dl (12.0-15.5); LYMPH # 1.4 10^3/uL (1.5-5.0); LYMPH % 19.3 % (24.0-44.0); MEAN CORPUSCULAR HEMOGLOBIN 32.6 pg (27.0-33.0); MEAN CORPUSCULAR HGB CONC 32.9 g/dl (32.0-36.5); MEAN CORPUSCULAR VOLUME 99.1 fl (80.0-96.0); MONO # 0.7 10^3/uL (0.0-0.8); MONO % 8.8 % (2.0-8.0); NEUTROPHILS # 4.7 10^3/uL (1.5-8.5); NEUTROPHILS % 63.8 % (36.0-66.0); PLATELET COUNT, AUTOMATED 246 10^3/uL (150-450); RED BLOOD COUNT 4.36 10^6/uL (4.00-5.40); WHITE BLOOD COUNT 7.4 10^3/uL (4.0-10.0)
[2022-10-22 14:07] LABS: FREE T4 0.76 NG/DL (0.89-1.76); THYROID STIMULATING HORMONE 16.046 uIU/ML (0.55-4.78); TOTAL 25(OH) VITAMIN D 23.4 NG/ML (20.0-100.0)
[2022-10-22 14:26] LABS: ALBUMIN 3.5 G/DL (3.2-5.2); ALKALINE PHOSPHATASE 129 U/L (46-116); ALT/SGPT 34 U/L (7.0-40); AST/SGOT 43 U/L (<34); BILIRUBIN,TOTAL 0.8 MG/DL (0.3-1.2); BLOOD UREA NITROGEN 23 MG/DL (9-23); CARBON DIOXIDE LEVEL 28 MMOL/L (20-31); CHLORIDE LEVEL 100 MMOL/L (98-107); CHOLESTEROL LEVEL 176 MG/DL (<200); CHOLESTEROL RISK RATIO 2.62 (<5); CREATININE FOR GFR 0.82 MG/DL (0.55-1.30); GLOMERULAR FILTRATION RATE > 60.0 (>45); GLUCOSE, FASTING 274 MG/DL (74-106); HDL CHOLESTEROL 67.1 MG/DL (>40); LDL CHOLESTEROL 91.7 MG/DL (<100); NON-HDL-C 109 MG/DL; POTASSIUM SERUM 5.7 MMOL/L (3.5-5.1); SODIUM LEVEL 136 MMOL/L (136-145); TOTAL PROTEIN 6.7 G/DL (5.7-8.2); TRIGLYCERIDES LEVEL 86 MG/DL (<150)
[2022-10-22 14:51] LABS: HEMOGLOBIN A1c 9.5 % (4.0-6.0)
== END ==
LOC: M SFHCCLAY 09:15
PROVIDERS: ATTEND Physician Assistant
DX: E11.9 Type 2 diabetes mellitus without complications (principal); E11.65 Type 2 diabetes mellitus with hyperglycemia; E55.9 Vitamin D deficiency, unspecified; E03.9 Hypothyroidism, unspecified

== ENCOUNTER → 2022-11-10 | Outpatient (CLI) | payer OTHER ==
[2022-11-10 18:01] LABS: ALBUMIN 3.5 G/DL (3.2-5.2); ALKALINE PHOSPHATASE 120 U/L (46-116); ALT/SGPT 17 U/L (7.0-40); AST/SGOT 22 U/L (<34); BILIRUBIN,TOTAL 0.7 MG/DL (0.3-1.2); BLOOD UREA NITROGEN 14 MG/DL (9-23); CALCIUM LEVEL 8.6 MG/DL (8.3-10.6); CARBON DIOXIDE LEVEL 27 MMOL/L (20-31); CHLORIDE LEVEL 97 MMOL/L (98-107); GLUCOSE, FASTING 436 MG/DL (74-106); MAGNESIUM LEVEL 1.8 MG/DL (1.8-2.4); POTASSIUM SERUM 4.9 MMOL/L (3.5-5.1); SODIUM LEVEL 133 MMOL/L (136-145); TOTAL PROTEIN 6.2 G/DL (5.7-8.2)
[2022-11-10 20:06] LABS: CREATININE FOR GFR 0.75 MG/DL (0.55-1.30); GLOMERULAR FILTRATION RATE > 60.0 (>45)
== END ==
LOC: M PLALAB 12:19
PROVIDERS: ATTEND Physician Assistant
DX: E87.5 Hyperkalemia (principal)

== ENCOUNTER → 2023-01-05 | Outpatient (CLI) | payer OTHER ==
[2023-01-05 13:54] LABS: THYROID STIMULATING HORMONE 0.351 uIU/ML (0.55-4.78)
[2023-01-05 13:55] LABS: FREE T4 1.29 NG/DL (0.89-1.76)
== END ==
LOC: M WUC 10:23
PROVIDERS: ATTEND Physician Assistant
DX: E03.9 Hypothyroidism, unspecified (principal)

== ENCOUNTER → 2023-01-06 | Outpatient (REF) | payer OTHER | LOC: M SFHCLERA 10:17 | PROVIDERS: ATTEND Physician Assistant | DX: Z53.9 Procedure and treatment not carried out, unspecified reason (principal) ==

== ENCOUNTER → 2023-02-04 | Outpatient (CLI) | payer OTHER ==
[2023-02-04 10:57] LABS: CREATININE, URINE 67.3 MG/DL
[2023-02-04 10:59] LABS: MAU/CREAT RATIO 5.9 MCG/MG (0.0-30.0)
[2023-02-05 08:12] LABS: C-PEPTIDE < 0.1 ng/mL (1.1-4.4)
== END ==
LOC: M WUC 08:42
PROVIDERS: ATTEND Nurse Practitioner Family
DX: E11.65 Type 2 diabetes mellitus with hyperglycemia (principal)

== ENCOUNTER → 2023-02-04 | Outpatient (CLI) | payer OTHER ==
[2023-02-04 10:21] LABS: BASO % 0.6 % (0.0-1.0); EOS # 0.2 10^3/uL (0.0-0.5); EOS % 2.8 % (0.0-3.0); HEMATOCRIT 42.4 % (36.0-47.0); HEMOGLOBIN 13.9 g/dl (12.0-15.5); LYMPH % 19.5 % (24.0-44.0); MEAN CORPUSCULAR HEMOGLOBIN 32.3 pg (27.0-33.0); MEAN CORPUSCULAR HGB CONC 32.8 g/dl (32.0-36.5); MEAN CORPUSCULAR VOLUME 98.6 fl (80.0-96.0); MONO # 0.4 10^3/uL (0.0-0.8); MONO % 7.9 % (2.0-8.0); NEUTROPHILS # 3.7 10^3/uL (1.5-8.5); PLATELET COUNT, AUTOMATED 250 10^3/uL (150-450); WHITE BLOOD COUNT 5.3 10^3/uL (4.0-10.0)
[2023-02-04 10:38] LABS: HEMOGLOBIN A1c 9.3 % (4.0-6.0)
[2023-02-04 10:46] LABS: ALBUMIN 3.3 G/DL (3.2-5.2); ALKALINE PHOSPHATASE 152 U/L (46-116); ALT/SGPT 18 U/L (7.0-40); AST/SGOT 24 U/L (<34); BILIRUBIN,TOTAL 0.5 MG/DL (0.3-1.2); BLOOD UREA NITROGEN 20 MG/DL (9-23); CALCIUM LEVEL 8.8 MG/DL (8.3-10.6); CARBON DIOXIDE LEVEL 27 MMOL/L (20-31); CHLORIDE LEVEL 103 MMOL/L (98-107); CHOLESTEROL LEVEL 178 MG/DL (<200); CHOLESTEROL RISK RATIO 2.91 (<5); CREATININE FOR GFR 0.58 MG/DL (0.55-1.30); GLOMERULAR FILTRATION RATE > 60.0 (>45); GLUCOSE, FASTING 377 MG/DL (74-106); HDL CHOLESTEROL 61.1 MG/DL (>40); LDL CHOLESTEROL 101.3 MG/DL (<100); NON-HDL-C 116.9 MG/DL; POTASSIUM SERUM 4.2 MMOL/L (3.5-5.1); SODIUM LEVEL 134 MMOL/L (136-145); TOTAL PROTEIN 6.2 G/DL (5.7-8.2); TRIGLYCERIDES LEVEL 78 MG/DL (<150)
[2023-02-04 10:47] LABS: THYROID STIMULATING HORMONE 0.416 uIU/ML (0.55-4.78); TOTAL 25(OH) VITAMIN D 22.4 NG/ML (20.0-100.0)
[2023-02-04 10:48] LABS: FREE T4 1.21 NG/DL (0.89-1.76)
== END ==
LOC: M WUC 08:38
PROVIDERS: ATTEND Physician Assistant
DX: E11.65 Type 2 diabetes mellitus with hyperglycemia (principal)

== ENCOUNTER → 2023-02-17 | Outpatient (CLI) | payer MEDICARE, OTHER | LOC: M WHC 08:18 | PROVIDERS: ATTEND Physician Assistant | DX: Z12.31 Encounter for screening mammogram for malignant neoplasm of breast (principal) ==

== ENCOUNTER → 2023-05-12 | Outpatient (REF) | payer MEDICARE, OTHER ==
[~2023-05-12] MED LIST changes: -ROPI0.5T3 PO; +ROPI0.5T33 PO
== END ==
LOC: M SFHCWAGY 13:44
PROVIDERS: ATTEND Nurse Practitioner Family
DX: Z12.4 Encounter for screening for malignant neoplasm of cervix (principal); R87.810 Cervical high risk human papillomavirus (HPV) DNA test positive; N95.2 Postmenopausal atrophic vaginitis
CPT/HCPCS: 87624; G0123

== ENCOUNTER → 2023-05-27 | Outpatient (REF) | payer OTHER, MEDICARE ==
[2023-05-27 17:42] LABS: APPEARANCE, URINE HAZY (CLEAR); BACTERIA, URINE AUTO 1+ (NEGATIVE); BILIRUBIN, URINE AUTO NEGATIVE (NEGATIVE); BLOOD, URINE BLOOD 1+ (NEGATIVE); COLOR, URINE AMBER (YELLOW); GLUCOSE, URINE (UA) AUTO 2+ mg/dL (NEGATIVE); KETONE, URINE AUTO NEGATIVE (NEGATIVE); LEUKOCYTE ESTERASE, URINE AUTO 3+ (NEGATIVE); MUCUS, URINE SMALL (NEGATIVE); NITRITE, URINE AUTO NEGATIVE (NEGATIVE); PROTEIN, URINE AUTO 1+ mg/dL (NEGATIVE); RBC, URINE AUTO 13 /HPF (0-3); SPECIFIC GRAVITY URINE AUTO 1.016 (1.002-1.035); SQUAMOUS EPITHELIAL CELL UR AU 2 /HPF (0-6); TRANSITIONAL EPITHELIAL AUTO <1 /HPF; UROBILINOGEN, URINE AUTO 0.2 mg/dL (0.0-2.0); WBC, URINE AUTO TNTC /HPF (0-3)
== END ==
LOC: M SFHCLERA 09:35
PROVIDERS: ATTEND Physician Assistant
DX: R30.0 Dysuria (principal)

== ENCOUNTER → 2023-06-04 | Outpatient (REF) | payer OTHER, MEDICARE | LOC: M LAB REF 17:00 | PROVIDERS: ATTEND Physician Assistant | DX: R30.0 Dysuria (principal) ==

== ENCOUNTER → 2023-12-29 | Outpatient (CLI) | payer OTHER ==
[~2023-12-29] MED LIST changes: +ATOR40TA75 PO; +EFFE37.52 PO; +FAMO40TA3 PO; +FIAS100I2 INJ; +LANTINJ4 INJ; +MECL-86 PO; +SYNT137T7 PO; +VENL150C43 PO
[2023-12-29 12:02] LABS: BASO # 0.1 10^3/uL (0.0-0.2); BASO % 1.1 % (0.0-1.0); EOS # 0.6 10^3/uL (0.0-0.5); EOS % 13.8 % (0.0-3.0); HEMATOCRIT 42.4 % (36.0-47.0); HEMOGLOBIN 13.5 g/dl (12.0-15.5); LYMPH # 1.4 10^3/uL (1.5-5.0); LYMPH % 30.3 % (24.0-44.0); MEAN CORPUSCULAR HGB CONC 31.8 g/dl (32.0-36.5); MEAN CORPUSCULAR VOLUME 97.5 fl (80.0-96.0); MONO # 0.3 10^3/uL (0.0-0.8); MONO % 7.2 % (2.0-8.0); NEUTROPHILS # 2.2 10^3/uL (1.5-8.5); NEUTROPHILS % 47.4 % (36.0-66.0); PLATELET COUNT, AUTOMATED 238 10^3/uL (150-450); RED BLOOD COUNT 4.35 10^6/uL (4.00-5.40); WHITE BLOOD COUNT 4.6 10^3/uL (4.0-10.0)
[2023-12-29 12:03] LABS: ALBUMIN 3.5 G/DL (3.2-5.2); ALKALINE PHOSPHATASE 105 U/L (46-116); ALT/SGPT 20 U/L (7.0-40); AST/SGOT 21 U/L (<34); BILIRUBIN,TOTAL 0.5 MG/DL (0.3-1.2); BLOOD UREA NITROGEN 19 MG/DL (9-23); CALCIUM LEVEL 8.9 MG/DL (8.3-10.6); CARBON DIOXIDE LEVEL 32 MMOL/L (20-31); CHLORIDE LEVEL 105 MMOL/L (98-107); CHOLESTEROL LEVEL 222 MG/DL (<200); CHOLESTEROL RISK RATIO 2.96 (<5); CREATININE FOR GFR 0.71 MG/DL (0.55-1.30); CREATININE, URINE 133.4 MG/DL; GLOMERULAR FILTRATION RATE > 60.0 (>45); GLUCOSE, FASTING 128 MG/DL (74-106); LDL CHOLESTEROL 128.6 MG/DL (<100); MAU/CREAT RATIO 2.9 MCG/MG (0.0-30.0); POTASSIUM SERUM 4.1 MMOL/L (3.5-5.1); SODIUM LEVEL 141 MMOL/L (136-145); TOTAL PROTEIN 6.5 G/DL (5.7-8.2); TRIGLYCERIDES LEVEL 92 MG/DL (<150)
[2023-12-29 12:05] LABS: FREE T4 0.57 NG/DL (0.89-1.76); THYROID STIMULATING HORMONE 38.997 uIU/ML (0.55-4.78)
[2023-12-29 12:37] LABS: HEMOGLOBIN A1c 8.5 % (4.0-6.0)
== END ==
LOC: M WUC 08:14
PROVIDERS: ATTEND Physician Assistant
DX: E10.65 Type 1 diabetes mellitus with hyperglycemia (principal); E03.9 Hypothyroidism, unspecified

== ENCOUNTER 2024-01-20 01:39 | Inpatient (IN) | payer OTHER ==
[~2024-01-20] VITALS: Ht 160 cm; Wt 78.5 kg
[2024-01-20] VITALS (47 sets, daily range): BP systolic 71–135; BP diastolic 46–62; TEMP 96.3–100; O2SAT 95–100
[2024-01-20] MEDS: HumuLIN R (REGULAR) INSULIN (NovoLIN R) **100U/ML** PER UNIT IV STA (01:54)
[2024-01-20] MEDS: NS 1,000 ML IV ONE ×5 (01:56→10:06)
[2024-01-20 02:24] LABS: HEMATOCRIT 47.7 % (36.0-47.0); HEMOGLOBIN 14.5 g/dl (12.0-15.5); MEAN CORPUSCULAR HEMOGLOBIN 32.2 pg (27.0-33.0); MEAN CORPUSCULAR HGB CONC 30.4 g/dl (32.0-36.5); MEAN CORPUSCULAR VOLUME 105.8 fl (80.0-96.0); RED BLOOD COUNT 4.51 10^6/uL (4.00-5.40); WHITE BLOOD COUNT 24.8 10^3/uL (4.0-10.0)
[2024-01-20 02:33] LABS: ABG BASE EXCESS -28.6 (-2.0-2.0); ABG O2 SATURATION 97.7 % (95.0-99.0); ABG PARTIAL PRESSURE O2 137.3 mmHg (75.0-100.0); ABG STANDARD HCO3 5.6 MMOL/L. (22.0-26.0); ABG TOTAL CO2 3.4 MMOL/L (23.0-31.0)
[2024-01-20 02:36] LABS: ABG PARTIAL PRESSURE CO2 15.4 mmHg (35.0-45.0); ABG pH (ARTERIAL) 6.902 UNITS (7.350-7.450)
[2024-01-20 02:44] LABS: PLATELET COUNT, AUTOMATED 258 10^3/uL (150-450)
[2024-01-20] MEDS: ETOMIDATE INJ 20MG/10ML VIAL IV ONE (02:45)
[2024-01-20] MEDS: LIDOCAINE 2% INJ 100 MG/5 ML SYRINGE IV ONE (02:45)
[2024-01-20] MEDS: ROCURONIUM BROMIDE 50MG/5ML VIAL IV ONE (02:46)
[2024-01-20 02:47] LABS: ATYPICAL LYMPH 1 % (0-5); LYMPHOCYTES 13 % (16-44); MONOCYTES 5 % (0-5); NEUTROPHILS 79 % (28-66); PLATELET CLUMPS SMALL AMT; PLATELET ESTIMATE NORMAL (NORMAL)
[2024-01-20] MEDS: MIDAZOLAM 100MG/100ML-0.9%NACL 100 MG in IV 1 EA IV SCH (02:54)
[2024-01-20] MEDS: MIDAZOLAM INJ 2MG/2ML VIAL IV ONE (02:55)
[2024-01-20 03:11] LABS: HEMOGLOBIN A1c 8.8 % (4.0-6.0)
[2024-01-20] MEDS ORDERED: INSULIN IV RATE CHANGE DOCUMENTATION ML/HR XX SCH (03:15)
[2024-01-20] MEDS: CALCIUM CHLORIDE 10% 1 GM in D5W 100 ML IV ONE (03:22)
[2024-01-20] MEDS: INSULIN REGULAR IN 0.9 % NACL 100 UNIT in IV 1 EA IV SCH ×2 (03:48→12:24)
[2024-01-20] MEDS ORDERED: NOREPINEPHRINE 4MG IN D5 250ML 4 MG in IV 1 EA IV SCH (03:55)
[2024-01-20] MEDS ORDERED: MIDAZOLAM 100MG/100ML-0.9%NACL 100 MG in IV 1 EA IV SCH (03:55)
[2024-01-20] MEDS ORDERED: NS 1,000 ML IV SCH (04:05)
[2024-01-20] MEDS ORDERED: fentaNYL CITRATE/NaCl 1,000 MCG in IV 1 EA IV SCH (04:15)
[2024-01-20] MEDS ORDERED: FENTANYL DRIP LOCK BOX KEY 1 EACH XX PRN (04:15)
[2024-01-20 04:33] LABS: BLOOD UREA NITROGEN 36 MG/DL (9-23); CALCIUM LEVEL 8.5 MG/DL (8.3-10.6); CARBON DIOXIDE LEVEL < 10.0 MMOL/L (20-31); CHLORIDE LEVEL 99 MMOL/L (98-107); CREATININE FOR GFR 2.37 MG/DL (0.55-1.30); GLOMERULAR FILTRATION RATE 21.8 (>45); GLUCOSE, FASTING 760 MG/DL (74-106); POTASSIUM SERUM 5.3 MMOL/L (3.5-5.1); SODIUM LEVEL 139 MMOL/L (136-145)
[2024-01-20 04:56] LABS: PROCALCITONIN 5.49 ng/ml
[2024-01-20 05:00] LABS: CK-MB VALUE MASS 2.2 NG/ML (<3.6)
[2024-01-20 05:11] LABS: ACETONE/KETONE > 4.50 MMOL/L (0.02-0.27); CPK CREATINE PHOSPHOKINASE 73 U/L (34-145); MB/CK RELATIVE INDEX 3.01 (< OR =4)
[2024-01-20] MEDS: UNRESOLVED CLARIFICATION ENTRY XX STA (05:13)
[2024-01-20 05:24] LABS: VENOUS BASE EXCESS -21.2 (-2.0-2.0); VENOUS HCO3 7.2 MMOL/L (23.0-27.0); VENOUS PARTIAL PRESSURE CO2 24.8 mmHg (38.0-50.0); VENOUS PARTIAL PRESSURE O2 130.4 mmHg (30.0-50.0); VENOUS STANDARD HCO3 8.6 MMOL/L; VENOUS TOTAL CO2 7.9 MMOL/L (24.0-28.0)
[2024-01-20 05:29] LABS: HEMATOCRIT 25.5 % (36.0-47.0); MEAN CORPUSCULAR HEMOGLOBIN 32.8 pg (27.0-33.0); MEAN CORPUSCULAR HGB CONC 33.3 g/dl (32.0-36.5); MEAN CORPUSCULAR VOLUME 98.5 fl (80.0-96.0); RED BLOOD COUNT 2.59 10^6/uL (4.00-5.40); WHITE BLOOD COUNT 19.8 10^3/uL (4.0-10.0)
[2024-01-20 05:29] LABS: ABG BASE EXCESS -17.7 (-2.0-2.0); ABG HCO3 8.8 MMOL/L (22.0-26.0); ABG O2 SATURATION 98.8 % (95.0-99.0); ABG PARTIAL PRESSURE CO2 23.7 mmHg (35.0-45.0); ABG PARTIAL PRESSURE O2 148.7 mmHg (75.0-100.0); ABG STANDARD HCO3 11.2 MMOL/L. (22.0-26.0); ABG TOTAL CO2 9.5 MMOL/L (23.0-31.0)
[2024-01-20] MEDS: cefTRIAXone SOD 2 GM in D5W MINI-BAG PLUS 50 ML IV ONE (05:31)
[2024-01-20 05:32] LABS: ABG pH (ARTERIAL) 7.188 UNITS (7.350-7.450)
[2024-01-20 05:34] LABS: HEMOGLOBIN 8.5 g/dl (12.0-15.5); PLATELET COUNT, AUTOMATED 153 10^3/uL (150-450)
[2024-01-20 05:42] LABS: INR 1.46; PROTHROMBIN TIME 17.2 SECONDS (12.5-14.5)
[2024-01-20 06:00] LABS: ALBUMIN 1.7 G/DL (3.2-5.2); BILIRUBIN,DIRECT 0.1 MG/DL (<0.4); BILIRUBIN,TOTAL 0.2 MG/DL (0.3-1.2); TOTAL PROTEIN 3.3 G/DL (5.7-8.2)
[2024-01-20] MEDS: INSULIN IV RATE CHANGE DOCUMENTATION ML/HR XX SCH (06:05)
[2024-01-20 06:17] LABS: BLOOD UREA NITROGEN 25 MG/DL (9-23); CALCIUM LEVEL 5.1 MG/DL (8.3-10.6); CARBON DIOXIDE LEVEL < 10.0 MMOL/L (20-31); CHLORIDE LEVEL 119 MMOL/L (98-107); CREATININE FOR GFR 1.47 MG/DL (0.55-1.30); GLOMERULAR FILTRATION RATE 37.9 (>45); GLUCOSE, FASTING 499 MG/DL (74-106); PHOSPHORUS LEVEL 4.9 MG/DL (2.4-5.1); SODIUM LEVEL 147 MMOL/L (136-145)
[2024-01-20 06:19] LABS: VENOUS BASE EXCESS -16.1 (-2.0-2.0); VENOUS HCO3 10.7 MMOL/L (23.0-27.0); VENOUS O2 SATURATION 90.2 % (60.0-80.0); VENOUS PARTIAL PRESSURE CO2 28.6 mmHg (38.0-50.0); VENOUS STANDARD HCO3 12.2 MMOL/L; VENOUS TOTAL CO2 11.6 MMOL/L (24.0-28.0)
[2024-01-20] MEDS: PIPERACILLIN/TAZOBACTAM SOD 4.5 GM in D5W MINI-BAG PLUS 50 ML IV ONE (06:23)
[2024-01-20] MEDS: PANTOPRAZOLE 40MG VIAL IV SCH (06:23)
[2024-01-20] MEDS: NS 1,000 ML IV SCH (06:38)
[2024-01-20 06:52] LABS: CALCIUM LEVEL 7.5 MG/DL (8.3-10.6); CREATININE FOR GFR 1.98 MG/DL (0.55-1.30); GLOMERULAR FILTRATION RATE 26.8 (>45); PHOSPHORUS LEVEL 4.5 MG/DL (2.4-5.1); POTASSIUM SERUM 4.2 MMOL/L (3.5-5.1)
[2024-01-20] MEDS ORDERED: ISOVUE-370 76% 100ML VIAL As Ordered ONE (08:27)
[2024-01-20] MEDS: CALCIUM GLUCONATE 1,000 MG in D5W MINI-BAG PLUS 100 ML IV ONE (08:40)
[2024-01-20] MEDS: POTASSIUM CHLORIDE INJ 40 MEQ in NS 0.45% 1,000 ML IV SCH (08:41)
[2024-01-20 08:54] LABS: ABG BASE EXCESS -11.3 (-2.0-2.0); ABG O2 SATURATION 98.9 % (95.0-99.0); ABG PARTIAL PRESSURE CO2 24.9 mmHg (35.0-45.0); ABG PARTIAL PRESSURE O2 192.1 mmHg (75.0-100.0); ABG STANDARD HCO3 15.6 MMOL/L. (22.0-26.0); ABG TOTAL CO2 13.7 MMOL/L (23.0-31.0); ABG pH (ARTERIAL) 7.334 UNITS (7.350-7.450)
[2024-01-20] MEDS ORDERED: TIRZ2.5P SQ (09:19)
[2024-01-20] MEDS ORDERED: ATOR80TA59 PO (09:19)
[2024-01-20] MEDS ORDERED: LANTINJ4 SC (09:19)
[2024-01-20] MEDS ORDERED: HOME MED LIST COMPLETE! XX SCH (09:25)
[2024-01-20 10:04] LABS: BASO % 0.2 % (0.0-1.0); EOS % 0.1 % (0.0-3.0); LYMPH # 1.9 10^3/uL (1.5-5.0); LYMPH % 9.9 % (24.0-44.0); MEAN CORPUSCULAR HEMOGLOBIN 32.9 pg (27.0-33.0); MEAN CORPUSCULAR HGB CONC 35.3 g/dl (32.0-36.5); MEAN CORPUSCULAR VOLUME 93.2 fl (80.0-96.0); MONO # 1.7 10^3/uL (0.0-0.8); MONO % 8.9 % (2.0-8.0); NEUTROPHILS # 15.1 10^3/uL (1.5-8.5); NEUTROPHILS % 79.5 % (36.0-66.0); PLATELET COUNT, AUTOMATED 173 10^3/uL (150-450); RED BLOOD COUNT 3.22 10^6/uL (4.00-5.40)
[2024-01-20 10:13] LABS: HEMOGLOBIN 10.6 g/dl (12.0-15.5)
[2024-01-20 10:21] LABS: CK-MB VALUE MASS 5.9 NG/ML (<3.6)
[2024-01-20 10:27] LABS: ALBUMIN 2.3 G/DL (3.2-5.2); BILIRUBIN,TOTAL 0.3 MG/DL (0.3-1.2); CALCIUM LEVEL 7.5 MG/DL (8.3-10.6); CREATININE FOR GFR 1.77 MG/DL (0.55-1.30); GLOMERULAR FILTRATION RATE 30.6 (>45); MAGNESIUM LEVEL 1.6 MG/DL (1.8-2.4); MB/CK RELATIVE INDEX 4.3 (< OR =4); PHOSPHORUS LEVEL 1.4 MG/DL (2.4-5.1); POTASSIUM SERUM 3.3 MMOL/L (3.5-5.1); TOTAL PROTEIN 4.6 G/DL (5.7-8.2)
[2024-01-20] MEDS: KCL 20MEQ IN 100ML SWI (KRUN) 20 MEQ in IV 1 EA IV ONE (12:14)
[2024-01-20] MEDS: PIPERACILLIN/TAZOBACTAM SOD 4.5 GM in D5W MINI-BAG PLUS 50 ML IV SCH (14:24)
[2024-01-20 15:53] LABS: HEMATOCRIT 30.5 % (36.0-47.0); HEMOGLOBIN 10.9 g/dl (12.0-15.5); MEAN CORPUSCULAR HEMOGLOBIN 32.2 pg (27.0-33.0); MEAN CORPUSCULAR HGB CONC 35.7 g/dl (32.0-36.5); MEAN CORPUSCULAR VOLUME 90.2 fl (80.0-96.0); PLATELET COUNT, AUTOMATED 168 10^3/uL (150-450); RED BLOOD COUNT 3.38 10^6/uL (4.00-5.40); WHITE BLOOD COUNT 16.7 10^3/uL (4.0-10.0)
[2024-01-20] MEDS: KCL 40MEQ IN D5/0.45NS 1000ML 1,000 ML IV SCH (15:55)
[2024-01-20 16:26] LABS: FREE T4 0.67 NG/DL (0.89-1.76); THYROID STIMULATING HORMONE 20.631 uIU/ML (0.55-4.78)
[2024-01-20 16:34] LABS: ALBUMIN 2.4 G/DL (3.2-5.2); BILIRUBIN,TOTAL 0.2 MG/DL (0.3-1.2); CALCIUM LEVEL 7.8 MG/DL (8.3-10.6); CREATININE FOR GFR 1.5 MG/DL (0.55-1.30); FREE T3 1.6 PG/ML (2.3-4.2); MAGNESIUM LEVEL 1.5 MG/DL (1.8-2.4); PHOSPHORUS LEVEL 0.8 MG/DL (2.4-5.1); POTASSIUM SERUM 3.7 MMOL/L (3.5-5.1); TOTAL PROTEIN 4.9 G/DL (5.7-8.2)
[2024-01-20] MEDS ORDERED: POTASSIUM PHOSPHATE INJ 30 MMOL in D5W 500 ML IV SCH (17:10)
[2024-01-20] MEDS: MAG SULF 1GM/100ML (MAG RUN) 1 GM in IV 1 EA IV SCH (17:31)
[2024-01-20] MEDS: dexmedeTOMidine 200 MCG in IV 1 EA IV SCH (18:25)
[2024-01-20] MEDS: MIDAZOLAM INJ 2MG/2ML VIAL IV PRN (19:12)
[2024-01-20] MEDS: POTASSIUM PHOSPHATE INJ 30 MMOL in D5W 500 ML IV SCH (19:13)
[2024-01-20] MEDS: NOREPINEPHRINE 4MG IN D5 250ML 4 MG in IV 1 EA IV SCH (20:44)
[2024-01-20] MEDS ORDERED: HEPARIN SOD (PORCINE) 5000UNITS/ML 1ML VIAL/SYRINGE SQ SCH (22:00)
[2024-01-20 22:31] LABS: ALBUMIN 2.4 G/DL (3.2-5.2); BILIRUBIN,TOTAL 0.3 MG/DL (0.3-1.2); CREATININE FOR GFR 1.42 MG/DL (0.55-1.30); GLOMERULAR FILTRATION RATE 39.4 (>45); MAGNESIUM LEVEL 1.9 MG/DL (1.8-2.4); PHOSPHORUS LEVEL 2.5 MG/DL (2.4-5.1); POTASSIUM SERUM 4.3 MMOL/L (3.5-5.1); TOTAL PROTEIN 4.6 G/DL (5.7-8.2)
[2024-01-20] MEDS ORDERED: GLUCOSE 4 GM CHEW PO PRN (22:40)
[2024-01-20] MEDS ORDERED: GLUCAGON INJ 1MG VIAL SC PRN (22:40)
[2024-01-20] MEDS: LEVEMIR (INSULIN DETEMIR) 1 UNITS/0.01ML SC SCH (22:48)
[2024-01-20] MEDS: INSULIN LISPRO (NovoLOG) PER UNIT SC SCH (23:46)
[2024-01-21] VITALS (86 sets, daily range): BP systolic 68–136; BP diastolic 50–75; TEMP 96.4–98.5; O2SAT 97–100
[2024-01-21] MEDS: KCL 20MEQ in NS 1000ML 1,000 ML IV SCH (03:14)
[2024-01-21] MEDS: LEVOTHYROXINE 100MCG (0.1MG) 5ML SDV PF (SOLUTION FORM) IV SCH (05:06)
[2024-01-21 05:54] LABS: BASO % 0.1 % (0.0-1.0); EOS % 0.1 % (0.0-3.0); LYMPH # 1.4 10^3/uL (1.5-5.0); LYMPH % 8.2 % (24.0-44.0); MEAN CORPUSCULAR HEMOGLOBIN 32.4 pg (27.0-33.0); MEAN CORPUSCULAR HGB CONC 34.4 g/dl (32.0-36.5); MEAN CORPUSCULAR VOLUME 94.4 fl (80.0-96.0); MONO # 1.4 10^3/uL (0.0-0.8); NEUTROPHILS # 14.3 10^3/uL (1.5-8.5); NEUTROPHILS % 82.6 % (36.0-66.0); PLATELET COUNT, AUTOMATED 130 10^3/uL (150-450); RED BLOOD COUNT 3.39 10^6/uL (4.00-5.40); WHITE BLOOD COUNT 17.4 10^3/uL (4.0-10.0)
[2024-01-21 06:07] LABS: ABG BASE EXCESS -10.9 (-2.0-2.0); ABG HCO3 13.6 MMOL/L (22.0-26.0); ABG O2 SATURATION 98.7 % (95.0-99.0); ABG PARTIAL PRESSURE CO2 26.6 mmHg (35.0-45.0); ABG PARTIAL PRESSURE O2 175.9 mmHg (75.0-100.0); ABG STANDARD HCO3 15.9 MMOL/L. (22.0-26.0); ABG TOTAL CO2 14.4 MMOL/L (23.0-31.0); ABG pH (ARTERIAL) 7.326 UNITS (7.350-7.450)
[2024-01-21 06:22] LABS: ACETONE/KETONE 0.06 MMOL/L (0.02-0.27)
[2024-01-21 06:24] LABS: ALBUMIN 2.6 G/DL (3.2-5.2); BILIRUBIN,TOTAL 0.3 MG/DL (0.3-1.2); CALCIUM LEVEL 6.9 MG/DL (8.3-10.6); CREATININE FOR GFR 1.27 MG/DL (0.55-1.30); GLOMERULAR FILTRATION RATE 44.8 (>45); MAGNESIUM LEVEL 1.8 MG/DL (1.8-2.4); PHOSPHORUS LEVEL 4.5 MG/DL (2.4-5.1); POTASSIUM SERUM 5.3 MMOL/L (3.5-5.1); TOTAL PROTEIN 4.8 G/DL (5.7-8.2)
[2024-01-21] MEDS ORDERED: NS 1,000 ML IV SCH (06:30)
[2024-01-21] MEDS: LR 1,000 ML IV SCH (06:37)
[2024-01-21] MEDS: NS 1,000 ML IV ONE ×2 (08:36→09:39)
[2024-01-21] MEDS ORDERED: LEVEMIR (INSULIN DETEMIR) 1 UNITS/0.01ML SC SCH (09:00)
[2024-01-21] MEDS: LEVEMIR (INSULIN DETEMIR) 1 UNITS/0.01ML SC SCH (09:10)
[2024-01-21] MEDS: NS 1,000 ML IV SCH (11:10)
[2024-01-21 12:33] LABS: ALBUMIN 2.1 G/DL (3.2-5.2); BILIRUBIN,TOTAL 0.3 MG/DL (0.3-1.2); CALCIUM LEVEL 6.5 MG/DL (8.3-10.6); CREATININE FOR GFR 1.1 MG/DL (0.55-1.30); GLOMERULAR FILTRATION RATE 52.9 (>45); MAGNESIUM LEVEL 1.7 MG/DL (1.8-2.4); PHOSPHORUS LEVEL 2.6 MG/DL (2.4-5.1); POTASSIUM SERUM 4.2 MMOL/L (3.5-5.1); TOTAL PROTEIN 4.4 G/DL (5.7-8.2)
[2024-01-21] MEDS: MAG SULF 1GM/100ML (MAG RUN) 1 GM in IV 1 EA IV ONE (13:10)
[2024-01-21] MEDS: ASPIRIN 325 MG TAB PO ONE (13:11)
[2024-01-21 16:44] LABS: ALBUMIN 2.1 G/DL (3.2-5.2); BILIRUBIN,TOTAL 0.4 MG/DL (0.3-1.2); CALCIUM LEVEL 6.8 MG/DL (8.3-10.6); CREATININE FOR GFR 1.04 MG/DL (0.55-1.30); GLOMERULAR FILTRATION RATE 56.4 (>45); TOTAL PROTEIN 4.5 G/DL (5.7-8.2)
[2024-01-21 16:46] LABS: MB/CK RELATIVE INDEX 4.11 (< OR =4)
[2024-01-21] MEDS ORDERED: HEPARIN SOD (PORCINE) 5000UNITS/ML 1ML VIAL/SYRINGE IV PRN (16:55)
[2024-01-21] MEDS: CLOPIDOGREL 300 MG TAB (PLAVIX) PO ONE (17:13)
[2024-01-21] MEDS: HEPARIN DRIP 25,000 UNITS in IV 1 EA IV SCH (17:24)
[2024-01-21] MEDS: DEXTROSE 50% 50ML SYRINGE IV PRN (17:50)
[2024-01-21] MEDS ORDERED: FENTANYL DRIP LOCK BOX KEY 1 EACH XX PRN (18:20)
[2024-01-21] MEDS: fentaNYL CITRATE/NaCl 1,000 MCG in IV 1 EA IV SCH (18:31)
[2024-01-21] MEDS: PIPERACILLIN/TAZOBACTAM SOD 4.5 GM in D5W MINI-BAG PLUS 50 ML IV SCH (20:13)
[2024-01-21 23:20] LABS: ALBUMIN 2.1 G/DL (3.2-5.2); BILIRUBIN,TOTAL 0.4 MG/DL (0.3-1.2); CALCIUM LEVEL 6.8 MG/DL (8.3-10.6); CREATININE FOR GFR 1.02 MG/DL (0.55-1.30); GLOMERULAR FILTRATION RATE 57.7 (>45); MAGNESIUM LEVEL 1.9 MG/DL (1.8-2.4); PHOSPHORUS LEVEL 2.3 MG/DL (2.4-5.1); POTASSIUM SERUM 3.8 MMOL/L (3.5-5.1); TOTAL PROTEIN 4.5 G/DL (5.7-8.2)
[2024-01-21 23:31] LABS: CK-MB VALUE MASS 11.6 NG/ML (<3.6)
[2024-01-21 23:42] LABS: MB/CK RELATIVE INDEX 4.97 (< OR =4)
[2024-01-22] VITALS (36 sets, daily range): BP systolic 75–109; BP diastolic 52–65; TEMP 97.1–98.1; O2SAT 92–100
[2024-01-22] MEDS: MAG SULF 1GM/100ML (MAG RUN) 1 GM in IV 1 EA IV ONE (00:43)
[2024-01-22] MEDS: KCL 10MEQ/100ML SWI (KRUN) 10 MEQ in IV 1 EA IV ONE (01:49)
[2024-01-22 04:56] LABS: BASO % 0.1 % (0.0-1.0); EOS # 0.1 10^3/uL (0.0-0.5); EOS % 0.6 % (0.0-3.0); HEMATOCRIT 29.6 % (36.0-47.0); HEMOGLOBIN 10.3 g/dl (12.0-15.5); LYMPH # 1.9 10^3/uL (1.5-5.0); LYMPH % 13.9 % (24.0-44.0); MEAN CORPUSCULAR HEMOGLOBIN 32.1 pg (27.0-33.0); MEAN CORPUSCULAR HGB CONC 34.8 g/dl (32.0-36.5); MEAN CORPUSCULAR VOLUME 92.2 fl (80.0-96.0); MONO # 0.5 10^3/uL (0.0-0.8); MONO % 3.5 % (2.0-8.0); NEUTROPHILS # 11.1 10^3/uL (1.5-8.5); PLATELET COUNT, AUTOMATED 110 10^3/uL (150-450); RED BLOOD COUNT 3.21 10^6/uL (4.00-5.40); WHITE BLOOD COUNT 13.7 10^3/uL (4.0-10.0)
[2024-01-22 05:07] LABS: INR 1.24; PROTHROMBIN TIME 15.2 SECONDS (12.5-14.5)
[2024-01-22 05:22] LABS: PARTIAL THROMBOPLASTIN TIME 146.3 SECONDS (24.8-34.2)
[2024-01-22 05:55] LABS: CK-MB VALUE MASS 8.7 NG/ML (<3.6); CPK CREATINE PHOSPHOKINASE 199 U/L (34-145); MB/CK RELATIVE INDEX 4.37 (< OR =4)
[2024-01-22 05:55] LABS: ABG BASE EXCESS -6.6 (-2.0-2.0); ABG HCO3 16.9 MMOL/L (22.0-26.0); ABG PARTIAL PRESSURE CO2 27.5 mmHg (35.0-45.0); ABG PARTIAL PRESSURE O2 177.5 mmHg (75.0-100.0); ABG STANDARD HCO3 19.1 MMOL/L. (22.0-26.0); ABG TOTAL CO2 17.7 MMOL/L (23.0-31.0); ABG pH (ARTERIAL) 7.406 UNITS (7.350-7.450)
[2024-01-22 05:56] LABS: ALKALINE PHOSPHATASE 111 U/L (46-116); ALT/SGPT 41 U/L (7.0-40); AST/SGOT 94 U/L (<34); BILIRUBIN,TOTAL 0.5 MG/DL (0.3-1.2); BLOOD UREA NITROGEN 13 MG/DL (9-23); CALCIUM LEVEL 6.7 MG/DL (8.3-10.6); CARBON DIOXIDE LEVEL 18 MMOL/L (20-31); CHLORIDE LEVEL 116 MMOL/L (98-107); CREATININE FOR GFR 0.96 MG/DL (0.55-1.30); GLOMERULAR FILTRATION RATE > 60.0 (>45); GLUCOSE, FASTING 97 MG/DL (74-106); MAGNESIUM LEVEL 2.2 MG/DL (1.8-2.4); PHOSPHORUS LEVEL 2.2 MG/DL (2.4-5.1); POTASSIUM SERUM 3.7 MMOL/L (3.5-5.1); SODIUM LEVEL 143 MMOL/L (136-145); TOTAL PROTEIN 4.4 G/DL (5.7-8.2)
[2024-01-22] MEDS: FUROSEMIDE 100MG/10ML VIAL IV ONE (08:24)
[2024-01-22] MEDS: ASPIRIN 81MG ENTERIC TABLET PO SCH (08:25)
[2024-01-22] MEDS: ASPIRIN 81MG CHEW TABLET GT SCH (08:42)
[2024-01-22] MEDS: VASOPRESSIN INJ 20 UNITS in NS 499 ML IV SCH (10:33)
[2024-01-22] MEDS ORDERED: ATROPINE SULF 1MG/10ML SYRINGE As Ordered ONE (11:55)
[2024-01-22 12:35] LABS: BASO % 0.2 % (0.0-1.0); EOS # 0.1 10^3/uL (0.0-0.5); EOS % 0.6 % (0.0-3.0); HEMATOCRIT 33.4 % (36.0-47.0); HEMOGLOBIN 11.6 g/dl (12.0-15.5); LYMPH % 13.4 % (24.0-44.0); MEAN CORPUSCULAR HEMOGLOBIN 32.4 pg (27.0-33.0); MEAN CORPUSCULAR HGB CONC 34.7 g/dl (32.0-36.5); MEAN CORPUSCULAR VOLUME 93.3 fl (80.0-96.0); MONO # 0.6 10^3/uL (0.0-0.8); NEUTROPHILS # 12.2 10^3/uL (1.5-8.5); NEUTROPHILS % 81.1 % (36.0-66.0); PLATELET COUNT, AUTOMATED 124 10^3/uL (150-450); RED BLOOD COUNT 3.58 10^6/uL (4.00-5.40); WHITE BLOOD COUNT 15.1 10^3/uL (4.0-10.0)
[2024-01-22 12:52] LABS: ALBUMIN 2.5 G/DL (3.2-5.2); BILIRUBIN,TOTAL 0.8 MG/DL (0.3-1.2); CALCIUM LEVEL 6.9 MG/DL (8.3-10.6); CK-MB VALUE MASS 7.2 NG/ML (<3.6); GLOMERULAR FILTRATION RATE 59.1 (>45); MB/CK RELATIVE INDEX 4.33 (< OR =4); PHOSPHORUS LEVEL 2.6 MG/DL (2.4-5.1); POTASSIUM SERUM 3.6 MMOL/L (3.5-5.1); TOTAL PROTEIN 5.1 G/DL (5.7-8.2)
[2024-01-22] MEDS ORDERED: cefTRIAXone SOD 1 GM in D5W MINI-BAG PLUS 50 ML IV SCH (15:00)
== END 2024-01-22 13:30 | disposition short-term general hospital (02) | DRG 637 ==
LOC: M ED 01:39 → M ED INP 03:55 → ENRESERV 05:06 → M ICU 05:59
PROVIDERS: ADMIT Preventive Medicine Undersea and Hyperbaric Medicine; ATTEND Internal Medicine Critical Care Medicine
PROC: 5A1945Z Respiratory Ventilation, 24-96 Consecutive Hours (ICD-10-PCS; principal; 2024-01-20)
DX: E11.11 Type 2 diabetes mellitus with ketoacidosis with coma (principal); R57.0 Cardiogenic shock; G93.41 Metabolic encephalopathy; I21.4 Non-ST elevation (NSTEMI) myocardial infarction; N17.9 Acute kidney failure, unspecified; I47.10 Supraventricular tachycardia, unspecified; I95.9 Hypotension, unspecified; E11.43 Type 2 diabetes mellitus with diabetic autonomic (poly)neuropathy; E03.9 Hypothyroidism, unspecified; I10 Essential (primary) hypertension; E11.65 Type 2 diabetes mellitus with hyperglycemia; Z79.82 Long term (current) use of aspirin; Z79.899 Other long term (current) drug therapy; Z79.4 Long term (current) use of insulin; F32.A Depression, unspecified

== ENCOUNTER → 2024-02-25 | Outpatient (REF) | payer OTHER, MEDICARE, MEDICAID ==
[~2024-02-25] MED LIST changes: +TIRZ2.5P SQ
[2024-02-25 19:37] LABS: BASO # 0.1 10^3/uL (0.0-0.2); BASO % 0.9 % (0.0-1.0); EOS # 0.3 10^3/uL (0.0-0.5); HEMATOCRIT 35.2 % (36.0-47.0); HEMOGLOBIN 11.3 g/dl (12.0-15.5); LYMPH # 0.9 10^3/uL (1.5-5.0); LYMPH % 16.9 % (24.0-44.0); MEAN CORPUSCULAR HEMOGLOBIN 31.6 pg (27.0-33.0); MEAN CORPUSCULAR HGB CONC 32.1 g/dl (32.0-36.5); MEAN CORPUSCULAR VOLUME 98.3 fl (80.0-96.0); MONO # 0.5 10^3/uL (0.0-0.8); MONO % 9.6 % (2.0-8.0); NEUTROPHILS # 3.6 10^3/uL (1.5-8.5); NEUTROPHILS % 67.4 % (36.0-66.0); PLATELET COUNT, AUTOMATED 257 10^3/uL (150-450); RED BLOOD COUNT 3.58 10^6/uL (4.00-5.40); WHITE BLOOD COUNT 5.4 10^3/uL (4.0-10.0)
[2024-02-25 20:02] LABS: FREE T4 0.82 NG/DL (0.89-1.76); THYROID STIMULATING HORMONE 19.647 uIU/ML (0.55-4.78)
[2024-02-25 20:19] LABS: ALBUMIN 2.7 G/DL (3.2-5.2); ALKALINE PHOSPHATASE 120 U/L (46-116); ALT/SGPT 15 U/L (7.0-40); AST/SGOT 16 U/L (<34); BILIRUBIN,TOTAL 0.3 MG/DL (0.3-1.2); BLOOD UREA NITROGEN 15 MG/DL (9-23); CALCIUM LEVEL 8.8 MG/DL (8.3-10.6); CARBON DIOXIDE LEVEL 30 MMOL/L (20-31); CHLORIDE LEVEL 106 MMOL/L (98-107); CREATININE FOR GFR 0.68 MG/DL (0.55-1.30); GLOMERULAR FILTRATION RATE > 60.0 (>45); GLUCOSE, FASTING 247 MG/DL (74-106); POTASSIUM SERUM 4.1 MMOL/L (3.5-5.1); SODIUM LEVEL 142 MMOL/L (136-145); TOTAL PROTEIN 5.8 G/DL (5.7-8.2)
== END ==
LOC: M LABWUC 17:11
PROVIDERS: ATTEND Physician Assistant
DX: I21.4 Non-ST elevation (NSTEMI) myocardial infarction (principal); Z79.899 Other long term (current) drug therapy

== ENCOUNTER → 2024-04-13 | Outpatient (CLI) | payer OTHER, MEDICARE, MEDICAID ==
[2024-04-13 18:32] LABS: ALBUMIN 3.3 G/DL (3.2-5.2); ALKALINE PHOSPHATASE 103 U/L (46-116); ALT/SGPT 18 U/L (7.0-40); AST/SGOT 16 U/L (<34); BILIRUBIN,TOTAL 0.6 MG/DL (0.3-1.2); BLOOD UREA NITROGEN 17 MG/DL (9-23); CALCIUM LEVEL 8.8 MG/DL (8.3-10.6); CARBON DIOXIDE LEVEL 28 MMOL/L (20-31); CHLORIDE LEVEL 103 MMOL/L (98-107); CHOLESTEROL LEVEL 128 MG/DL (<200); CHOLESTEROL RISK RATIO 3.12 (<5); CREATININE FOR GFR 0.67 MG/DL (0.55-1.30); GLOMERULAR FILTRATION RATE > 60.0 (>45); GLUCOSE, FASTING 566 MG/DL (74-106); LDL CHOLESTEROL 72.2 MG/DL (<100); POTASSIUM SERUM 4.9 MMOL/L (3.5-5.1); SODIUM LEVEL 135 MMOL/L (136-145); TOTAL PROTEIN 5.9 G/DL (5.7-8.2); TRIGLYCERIDES LEVEL 74 MG/DL (<150)
== END ==
LOC: M WUC 14:25
PROVIDERS: ATTEND Internal Medicine Cardiovascular Disease
DX: I25.10 Atherosclerotic heart disease of native coronary artery without angina pectoris (principal); Z98.61 Coronary angioplasty status; E78.5 Hyperlipidemia, unspecified; I50.20 Unspecified systolic (congestive) heart failure; E10.10 Type 1 diabetes mellitus with ketoacidosis without coma; I11.0 Hypertensive heart disease with heart failure

== ENCOUNTER 2024-05-10 22:15 | Inpatient (IN) | payer MEDICAID, MEDICARE, OTHER ==
[~2024-05-10] VITALS: Ht 157.5 cm; Wt 76.2 kg
[2024-05-10] MEDS: NS 1,000 ML IV ONE ×2 (22:30→22:55)
[2024-05-10 22:54] LABS: HEMATOCRIT 42.7 % (36.0-47.0); HEMOGLOBIN 12.2 g/dl (12.0-15.5); MEAN CORPUSCULAR HEMOGLOBIN 30.8 pg (27.0-33.0); MEAN CORPUSCULAR HGB CONC 28.6 g/dl (32.0-36.5); MEAN CORPUSCULAR VOLUME 107.8 fl (80.0-96.0); PLATELET COUNT, AUTOMATED 302 10^3/uL (150-450); RED BLOOD COUNT 3.96 10^6/uL (4.00-5.40)
[2024-05-10 22:59] LABS: WHITE BLOOD COUNT 30.2 10^3/uL (4.0-10.0)
[2024-05-10 23:08] LABS: INR 1.24; PROTHROMBIN TIME 15.3 SECONDS (12.5-14.5)
[2024-05-10 23:15] LABS: CK-MB VALUE MASS 5.9 NG/ML (<3.6)
[2024-05-10 23:16] LABS: ETHYL ALCOHOL (ETHANOL) 0.003 % (0.000-0.010)
[2024-05-10 23:18] LABS: SALICYLATE LEVEL < 3.0 MG/DL (<30)
[2024-05-10 23:19] LABS: THYROID STIMULATING HORMONE 2.879 uIU/ML (0.55-4.78)
[2024-05-10 23:24] LABS: ACETONE/KETONE > 4.50 MMOL/L (0.02-0.27); CPK CREATINE PHOSPHOKINASE 83 U/L (34-145)
[2024-05-10] MEDS: CEFEPIME HCL 2 GM in D5W MINI-BAG PLUS 50 ML IV ONE (23:25)
[2024-05-10 23:31] LABS: VENOUS BASE EXCESS -25.7 (-2.0-2.0); VENOUS HCO3 4.2 MMOL/L (23.0-27.0); VENOUS O2 SATURATION 98.3 % (60.0-80.0); VENOUS PARTIAL PRESSURE CO2 18.5 mmHg (38.0-50.0); VENOUS PARTIAL PRESSURE O2 167.3 mmHg (30.0-50.0); VENOUS PH 6.978 UNITS (7.330-7.430); VENOUS STANDARD HCO3 6.2 MMOL/L; VENOUS TOTAL CO2 4.8 MMOL/L (24.0-28.0)
[2024-05-10 23:36] LABS: ATYPICAL LYMPH 1 % (0-5); LYMPHOCYTES 9 % (16-44); METAMYELOCYTES 1 % (0-0); MONOCYTES 5 % (0-5); NEUTROPHILS 81 % (28-66); PLATELET ESTIMATE NORMAL (NORMAL)
[2024-05-10 23:37] LABS: TOXIC VACUOLATION 3+
[2024-05-10 23:39] LABS: BURR CELLS 2+; OVALOCYTES 1+
[2024-05-10 23:41] LABS: HYPOCHROMASIA 1+
[2024-05-10] MEDS: NS 2,080 ML in IV 1 EA IV ONE (23:45)
[2024-05-10 23:51] LABS: AMPHETAMINES LEVEL URINE NEGATIVE (NEGATIVE); BARBITURATES URINE NEGATIVE (NEGATIVE); BENZODIAZEPINES URINE NEGATIVE (NEGATIVE); CANNABINOIDS URINE NEGATIVE (NEGATIVE); COCAINE METABOLITE URINE NEGATIVE (NEGATIVE); METHADONE URINE NEGATIVE (NEGATIVE); OPIATES URINE NEGATIVE (NEGATIVE); PHENCYCLIDINE URINE NEGATIVE (NEGATIVE)
[2024-05-10 23:53] LABS: ALBUMIN 3.5 G/DL (3.2-5.2); ALKALINE PHOSPHATASE 113 U/L (46-116); ALT/SGPT 13 U/L (7.0-40); AST/SGOT 28 U/L (<34); BILIRUBIN,DIRECT 0.3 MG/DL (<0.4); BILIRUBIN,TOTAL 0.5 MG/DL (0.3-1.2); BLOOD UREA NITROGEN 38 MG/DL (9-23); CALCIUM LEVEL 9.4 MG/DL (8.3-10.6); CARBON DIOXIDE LEVEL < 10.0 MMOL/L (20-31); CHLORIDE LEVEL 91 MMOL/L (98-107); CREATININE FOR GFR 2.14 MG/DL (0.55-1.30); GLOMERULAR FILTRATION RATE 24.5 (>45); POTASSIUM SERUM 5.8 MMOL/L (3.5-5.1); SODIUM LEVEL 133 MMOL/L (136-145); TOTAL PROTEIN 6.5 G/DL (5.7-8.2)
[2024-05-10 23:55] LABS: GLUCOSE, FASTING 1033 MG/DL (74-106)
[2024-05-11] VITALS (72 sets, daily range): BP systolic 68–157; BP diastolic 30–71; TEMP 97.1–100.3; O2SAT 91–100
[2024-05-11] MEDS ORDERED: INSULIN IV RATE CHANGE DOCUMENTATION ML/HR XX SCH (00:20)
[2024-05-11] MEDS: HumuLIN R (REGULAR) INSULIN (NovoLIN R) **100U/ML** PER UNIT IV ONE (00:22)
[2024-05-11] MEDS: SODIUM BICARBONATE 8.4% INJ 50ML SYRINGE IV STA ×3 (00:25→00:26)
[2024-05-11 00:28] LABS: PROCALCITONIN 21.14 ng/ml
[2024-05-11] MEDS: PANTOPRAZOLE 40MG VIAL IV ONE (00:31)
[2024-05-11] MEDS: INSULIN REGULAR IN 0.9 % NACL 100 UNIT in IV 1 EA IV SCH ×3 (00:34→15:25)
[2024-05-11] MEDS: NOREPINEPHRINE 4MG IN D5 250ML 4 MG in IV 1 EA IV SCH ×2 (01:25→07:01)
[2024-05-11 01:42] LABS: CK-MB VALUE MASS 3.4 NG/ML (<3.6)
[2024-05-11] MEDS: NS 1,000 ML IV SCH (01:45)
[2024-05-11 02:11] LABS: MB/CK RELATIVE INDEX 4.53 (< OR =4)
[2024-05-11 02:46] LABS: BLOOD UREA NITROGEN 38 MG/DL (9-23); CARBON DIOXIDE LEVEL < 10.0 MMOL/L (20-31); CHLORIDE LEVEL 103 MMOL/L (98-107); GLOMERULAR FILTRATION RATE 26.5 (>45); GLUCOSE, FASTING 805 MG/DL (74-106); POTASSIUM SERUM 4.8 MMOL/L (3.5-5.1); SODIUM LEVEL 141 MMOL/L (136-145)
[2024-05-11 03:08] LABS: ABG BASE EXCESS -18.3 (-2.0-2.0); ABG HCO3 6.9 MMOL/L (22.0-26.0); ABG O2 SATURATION 98.6 % (95.0-99.0); ABG PARTIAL PRESSURE CO2 16.4 mmHg (35.0-45.0); ABG PARTIAL PRESSURE O2 158.6 mmHg (75.0-100.0); ABG STANDARD HCO3 10.6 MMOL/L. (22.0-26.0); ABG TOTAL CO2 7.4 MMOL/L (23.0-31.0); ABG pH (ARTERIAL) 7.244 UNITS (7.350-7.450)
[2024-05-11] MEDS ORDERED: LR 1,000 ML IV SCH (03:25)
[2024-05-11] MEDS: LR 1,000 ML IV ONE ×5 (04:30→11:52)
[2024-05-11] MEDS ORDERED: VANCOMYCIN HCL 750 MG, VIAL MATE ADAPTER 1 EACH in D5W 250 ML IV SCH (05:10)
[2024-05-11] MEDS ORDERED: CEFEPIME HCL 2 GM in D5W MINI-BAG PLUS 50 ML IV SCH (05:10)
[2024-05-11] MEDS ORDERED: KCL 10MEQ/100ML SWI (KRUN) 10 MEQ in IV 1 EA IV ONE (05:20)
[2024-05-11] MEDS ORDERED: GLUCOSE 4 GM CHEW PO PRN (05:25)
[2024-05-11] MEDS ORDERED: GLUCAGON INJ 1MG VIAL SC PRN (05:25)
[2024-05-11] MEDS: UNRESOLVED CLARIFICATION ENTRY XX STA (05:33)
[2024-05-11] MEDS: CLOPIDOGREL 75 MG TAB PO SCH (06:00)
[2024-05-11] MEDS: ASPIRIN 81MG CHEW TABLET PO SCH (06:00)
[2024-05-11] MEDS: INSULIN IV RATE CHANGE DOCUMENTATION ML/HR XX SCH (06:05)
[2024-05-11] MEDS ORDERED: METO1TAB32 PO (06:10)
[2024-05-11] MEDS ORDERED: PANT40TA29 PO (06:10)
[2024-05-11] MEDS ORDERED: ASPI-615 PO (06:10)
[2024-05-11] MEDS ORDERED: SPIR-10 PO (06:10)
[2024-05-11] MEDS ORDERED: ENTR1TAB PO (06:10)
[2024-05-11] MEDS ORDERED: HOME MED LIST COMPLETE! XX SCH (06:20)
[2024-05-11 06:37] LABS: VENOUS BASE EXCESS -8.6 (-2.0-2.0); VENOUS HCO3 15.4 MMOL/L (23.0-27.0); VENOUS O2 SATURATION 95.3 % (60.0-80.0); VENOUS PARTIAL PRESSURE CO2 27.1 mmHg (38.0-50.0); VENOUS PH 7.372 UNITS (7.330-7.430); VENOUS STANDARD HCO3 17.5 MMOL/L; VENOUS TOTAL CO2 16.2 MMOL/L (24.0-28.0)
[2024-05-11 06:55] LABS: HEMATOCRIT 26.5 % (36.0-47.0); MEAN CORPUSCULAR HEMOGLOBIN 31.1 pg (27.0-33.0); MEAN CORPUSCULAR HGB CONC 34.7 g/dl (32.0-36.5); MEAN CORPUSCULAR VOLUME 89.5 fl (80.0-96.0); PLATELET COUNT, AUTOMATED 231 10^3/uL (150-450); RED BLOOD COUNT 2.96 10^6/uL (4.00-5.40); WHITE BLOOD COUNT 26.9 10^3/uL (4.0-10.0)
[2024-05-11 07:01] LABS: HEMOGLOBIN 9.2 g/dl (12.0-15.5)
[2024-05-11] MEDS: POTASSIUM CHLORIDE INJ 40 MEQ in LR 1,000 ML IV SCH (07:03)
[2024-05-11] MEDS: VANCOMYCIN HCL 500 MG in D5W MINI-BAG PLUS 100 ML IV ONE (07:04)
[2024-05-11 07:10] LABS: CALCIUM LEVEL 6.8 MG/DL (8.3-10.6); CREATININE FOR GFR 1.66 MG/DL (0.55-1.30); GLOMERULAR FILTRATION RATE 32.9 (>45); PHOSPHORUS LEVEL 1.4 MG/DL (2.4-5.1); POTASSIUM SERUM 3.2 MMOL/L (3.5-5.1)
[2024-05-11 07:41] LABS: HEMOGLOBIN A1c 9.2 % (4.0-6.0)
[2024-05-11] MEDS: LEVOTHYROXINE 100MCG (0.1MG) 5ML SDV PF (SOLUTION FORM) IV SCH (08:01)
[2024-05-11] MEDS: VANCOMYCIN HCL 750 MG, VIAL MATE ADAPTER 1 EACH in D5W 250 ML IV ONE (08:13)
[2024-05-11] MEDS: PANTOPRAZOLE 40MG VIAL IV SCH (08:22)
[2024-05-11] MEDS: HEPARIN SOD (PORCINE) 5000UNITS/ML 1ML VIAL/SYRINGE SQ SCH (08:26)
[2024-05-11] MEDS: KCL 20MEQ IN 100ML SWI (KRUN) 20 MEQ in IV 1 EA IV SCH (08:27)
[2024-05-11] MEDS: CALCIUM GLUCONATE 1,000 MG in D5W MINI-BAG PLUS 100 ML IV SCH (08:46)
[2024-05-11] MEDS ORDERED: KCL 20MEQ IN 100ML SWI (KRUN) 20 MEQ in IV 1 EA IV SCH (09:00)
[2024-05-11] MEDS ORDERED: PANTOPRAZOLE 40MG VIAL IV SCH (09:00)
[2024-05-11] MEDS ORDERED: VASOPRESSIN INJ 20UNITS/ML 1ML VIAL IV STA (09:56)
[2024-05-11] MEDS ORDERED: POTASSIUM PHOSPHATE INJ 30 MMOL in D5W 500 ML IV ONE (10:00)
[2024-05-11] MEDS ORDERED: VASOPRESSIN INJ 20 UNITS in NS 499 ML IV SCH (10:05)
[2024-05-11 11:07] LABS: HEMATOCRIT 26.1 % (36.0-47.0); MEAN CORPUSCULAR HGB CONC 34.5 g/dl (32.0-36.5); PLATELET COUNT, AUTOMATED 185 10^3/uL (150-450); WHITE BLOOD COUNT 24.4 10^3/uL (4.0-10.0)
[2024-05-11] MEDS: CEFEPIME HCL 1 GM in D5W MINI-BAG PLUS 50 ML IV SCH (11:21)
[2024-05-11 11:42] LABS: CALCIUM LEVEL 7.5 MG/DL (8.3-10.6); CREATININE FOR GFR 1.32 MG/DL (0.55-1.30); GLOMERULAR FILTRATION RATE 42.9 (>45); MAGNESIUM LEVEL 1.3 MG/DL (1.8-2.4); POTASSIUM SERUM 4.7 MMOL/L (3.5-5.1)
[2024-05-11] MEDS: VASOPRESSIN INJ 20 UNITS in NS 499 ML IV SCH (11:53)
[2024-05-11] MEDS: CEFEPIME HCL 1 GM in D5W MINI-BAG PLUS 50 ML IV ONE (12:33)
[2024-05-11] MEDS: HALOPERIDOL LACTATE 5MG/ML VIAL IV PRN (12:38)
[2024-05-11] MEDS: MAG SULF 1GM/100ML (MAG RUN) 1 GM in IV 1 EA IV ONE (12:43)
[2024-05-11] MEDS ORDERED: HEPARIN SOD (PORCINE) 5000UNITS/ML 1ML VIAL/SYRINGE SQ SCH (14:00)
[2024-05-11 14:30] LABS: CALCIUM LEVEL 7.4 MG/DL (8.3-10.6); CREATININE FOR GFR 1.24 MG/DL (0.55-1.30); GLOMERULAR FILTRATION RATE 46.1 (>45); MAGNESIUM LEVEL 1.2 MG/DL (1.8-2.4); POTASSIUM SERUM 4.3 MMOL/L (3.5-5.1)
[2024-05-11] MEDS: POTASSIUM CHLORIDE INJ 20 MEQ in LR 1,000 ML IV SCH (15:29)
[2024-05-11] MEDS: POTASSIUM PHOSPHATE INJ 15 MMOL in D5W 250 ML IV ONE (15:30)
[2024-05-11] MEDS: MAG SULF 1GM/100ML (MAG RUN) 1 GM in IV 1 EA IV SCH (15:52)
[2024-05-11 17:02] LABS: CALCIUM LEVEL 7.6 MG/DL (8.3-10.6); CREATININE FOR GFR 1.14 MG/DL (0.55-1.30); GLOMERULAR FILTRATION RATE 50.8 (>45); MAGNESIUM LEVEL 1.5 MG/DL (1.8-2.4); POTASSIUM SERUM 3.8 MMOL/L (3.5-5.1)
[2024-05-11] MEDS: VANCOMYCIN HCL 1,000 MG, VIAL MATE ADAPTER 1 EACH in D5W 250 ML IV SCH (17:41)
[2024-05-11] MEDS ORDERED: MAG SULF 1GM/100ML (MAG RUN) 1 GM in IV 1 EA IV ONE (18:00)
[2024-05-11] MEDS: KCL 20MEQ IN D5/0.45NS 1000ML 1,000 ML IV SCH (20:02)
[2024-05-11 20:33] LABS: CALCIUM LEVEL 7.4 MG/DL (8.3-10.6); GLOMERULAR FILTRATION RATE 59.1 (>45); MAGNESIUM LEVEL 1.8 MG/DL (1.8-2.4)
[2024-05-11] MEDS: LEVEMIR (INSULIN DETEMIR) 1 UNITS/0.01ML SC SCH (21:07)
[2024-05-11] MEDS: HALOPERIDOL LACTATE 5MG/ML VIAL IV ONE (21:25)
[2024-05-11 22:24] LABS: HEMATOCRIT 25.6 % (36.0-47.0); HEMOGLOBIN 9.1 g/dl (12.0-15.5); MEAN CORPUSCULAR HEMOGLOBIN 30.7 pg (27.0-33.0); MEAN CORPUSCULAR HGB CONC 35.5 g/dl (32.0-36.5); MEAN CORPUSCULAR VOLUME 86.5 fl (80.0-96.0); PLATELET COUNT, AUTOMATED 169 10^3/uL (150-450); RED BLOOD COUNT 2.96 10^6/uL (4.00-5.40); WHITE BLOOD COUNT 23.1 10^3/uL (4.0-10.0)
[2024-05-11 22:53] LABS: BLOOD UREA NITROGEN 22 MG/DL (9-23); CALCIUM LEVEL 7.5 MG/DL (8.3-10.6); CARBON DIOXIDE LEVEL 20 MMOL/L (20-31); CHLORIDE LEVEL 111 MMOL/L (98-107); CREATININE FOR GFR 0.98 MG/DL (0.55-1.30); GLOMERULAR FILTRATION RATE > 60.0 (>45); GLUCOSE, FASTING 117 MG/DL (74-106); SODIUM LEVEL 139 MMOL/L (136-145)
[2024-05-11] MEDS: CEFEPIME HCL 2 GM in D5W MINI-BAG PLUS 50 ML IV SCH (23:02)
[2024-05-12] VITALS (77 sets, daily range): BP systolic 77–148; BP diastolic 40–72; TEMP 97.4–98.2; O2SAT 80–100
[2024-05-12] MEDS ORDERED: INSULIN LISPRO (NovoLOG) PER UNIT SC SCH
[2024-05-12 01:58] LABS: BLOOD UREA NITROGEN 20 MG/DL (9-23); CALCIUM LEVEL 7.4 MG/DL (8.3-10.6); CARBON DIOXIDE LEVEL 20 MMOL/L (20-31); CHLORIDE LEVEL 112 MMOL/L (98-107); CREATININE FOR GFR 0.95 MG/DL (0.55-1.30); GLOMERULAR FILTRATION RATE > 60.0 (>45); GLUCOSE, FASTING 124 MG/DL (74-106); POTASSIUM SERUM 4.1 MMOL/L (3.5-5.1); SODIUM LEVEL 139 MMOL/L (136-145)
[2024-05-12 05:50] LABS: BLOOD UREA NITROGEN 18 MG/DL (9-23); CALCIUM LEVEL 7.4 MG/DL (8.3-10.6); CARBON DIOXIDE LEVEL 21 MMOL/L (20-31); CHLORIDE LEVEL 113 MMOL/L (98-107); CREATININE FOR GFR 0.83 MG/DL (0.55-1.30); GLOMERULAR FILTRATION RATE > 60.0 (>45); GLUCOSE, FASTING 166 MG/DL (74-106); POTASSIUM SERUM 4.6 MMOL/L (3.5-5.1); SODIUM LEVEL 139 MMOL/L (136-145)
[2024-05-12 06:36] LABS: HEMOGLOBIN 9.1 g/dl (12.0-15.5); MEAN CORPUSCULAR HEMOGLOBIN 30.4 pg (27.0-33.0); PLATELET COUNT, AUTOMATED 163 10^3/uL (150-450); RED BLOOD COUNT 2.99 10^6/uL (4.00-5.40); WHITE BLOOD COUNT 23.9 10^3/uL (4.0-10.0)
[2024-05-12 07:07] LABS: PHOSPHORUS LEVEL 1.2 MG/DL (2.4-5.1)
[2024-05-12] MEDS ORDERED: VANCOMYCIN HCL 750 MG, VIAL MATE ADAPTER 1 EACH in D5W 250 ML IV SCH (08:00)
[2024-05-12] MEDS ORDERED: VANCOMYCIN HCL 1,000 MG, VIAL MATE ADAPTER 1 EACH in D5W 250 ML IV SCH (08:00)
[2024-05-12] MEDS: INSULIN LISPRO (NovoLOG) PER UNIT SC SCH ×2 (08:34→20:12)
[2024-05-12] MEDS: POTASSIUM PHOSPHATE INJ 18 MMOL in D5W 250 ML IV ONE (09:40)
[2024-05-12] MEDS: cefTRIAXone SOD 1 GM in D5W MINI-BAG PLUS 50 ML IV SCH (10:41)
[2024-05-12] MEDS: LACTATED RINGER'S 1000 ML IV ONE ×2 (10:41→15:00)
[2024-05-12 11:51] LABS: BLOOD UREA NITROGEN 13 MG/DL (9-23); CALCIUM LEVEL 7.7 MG/DL (8.3-10.6); CARBON DIOXIDE LEVEL 19 MMOL/L (20-31); CHLORIDE LEVEL 115 MMOL/L (98-107); GLOMERULAR FILTRATION RATE > 60.0 (>45); GLUCOSE, FASTING 124 MG/DL (74-106); POTASSIUM SERUM 4.2 MMOL/L (3.5-5.1); SODIUM LEVEL 139 MMOL/L (136-145)
[2024-05-12 14:48] LABS: BLOOD UREA NITROGEN 11 MG/DL (9-23); CALCIUM LEVEL 7.7 MG/DL (8.3-10.6); CARBON DIOXIDE LEVEL 21 MMOL/L (20-31); CHLORIDE LEVEL 114 MMOL/L (98-107); CREATININE FOR GFR 0.78 MG/DL (0.55-1.30); GLOMERULAR FILTRATION RATE > 60.0 (>45); GLUCOSE, FASTING 92 MG/DL (74-106); POTASSIUM SERUM 4.1 MMOL/L (3.5-5.1); SODIUM LEVEL 140 MMOL/L (136-145)
[2024-05-12] MEDS: DEXTROSE 50% 50ML SYRINGE IV PRN (17:23)
[2024-05-12] MEDS: PANTOPRAZOLE 40MG VIAL IV SCH (20:05)
[2024-05-12] MEDS: D5W 1,000 ML IV SCH (20:34)
[2024-05-12] MEDS ORDERED: LEVEMIR (INSULIN DETEMIR) 1 UNITS/0.01ML SC SCH (21:00)
[2024-05-12] MEDS: LEVEMIR (INSULIN DETEMIR) 1 UNITS/0.01ML SC SCH (21:40)
[2024-05-12] MEDS: QUEtiapine FUMARATE 50MG TAB PO PRN (21:48)
[2024-05-12 22:49] LABS: BLOOD UREA NITROGEN 9 MG/DL (9-23); CALCIUM LEVEL 7.7 MG/DL (8.3-10.6); CARBON DIOXIDE LEVEL 23 MMOL/L (20-31); CHLORIDE LEVEL 111 MMOL/L (98-107); CREATININE FOR GFR 0.76 MG/DL (0.55-1.30); GLOMERULAR FILTRATION RATE > 60.0 (>45); GLUCOSE, FASTING 132 MG/DL (74-106); POTASSIUM SERUM 3.8 MMOL/L (3.5-5.1); SODIUM LEVEL 140 MMOL/L (136-145)
[2024-05-13] VITALS (17 sets, daily range): BP systolic 85–146; BP diastolic 41–64; TEMP 96.9–98.2; O2SAT 96–100
[2024-05-13 04:31] LABS: HEMATOCRIT 25.2 % (36.0-47.0); HEMOGLOBIN 8.8 g/dl (12.0-15.5); MEAN CORPUSCULAR HEMOGLOBIN 30.9 pg (27.0-33.0); MEAN CORPUSCULAR HGB CONC 34.9 g/dl (32.0-36.5); MEAN CORPUSCULAR VOLUME 88.4 fl (80.0-96.0); PLATELET COUNT, AUTOMATED 121 10^3/uL (150-450); RED BLOOD COUNT 2.85 10^6/uL (4.00-5.40); WHITE BLOOD COUNT 11.8 10^3/uL (4.0-10.0)
[2024-05-13 04:51] LABS: BLOOD UREA NITROGEN 8 MG/DL (9-23); CALCIUM LEVEL 7.8 MG/DL (8.3-10.6); CARBON DIOXIDE LEVEL 26 MMOL/L (20-31); CHLORIDE LEVEL 114 MMOL/L (98-107); CREATININE FOR GFR 0.74 MG/DL (0.55-1.30); GLOMERULAR FILTRATION RATE > 60.0 (>45); GLUCOSE, FASTING 79 MG/DL (74-106); POTASSIUM SERUM 3.7 MMOL/L (3.5-5.1); SODIUM LEVEL 143 MMOL/L (136-145)
[2024-05-13] MEDS: D10W 1,000 ML IV SCH (04:55)
[2024-05-13] MEDS: LEVOTHYROXINE 88MCG TABLET (0.088 MG) PO SCH (06:09)
[2024-05-13] MEDS: LEVEMIR (INSULIN DETEMIR) 1 UNITS/0.01ML SC SCH ×2 (08:32→21:35)
[2024-05-13] MEDS ORDERED: LEVEMIR (INSULIN DETEMIR) 1 UNITS/0.01ML SC SCH ×2 (09:00)
[2024-05-14 00:01] VITALS: BP 121/63; TEMP 97.3; O2SAT 98
[2024-05-14 04:00] VITALS: BP 113/59; TEMP 97; O2SAT 98
[2024-05-14 04:55] LABS: HEMATOCRIT 28.9 % (36.0-47.0); HEMOGLOBIN 9.7 g/dl (12.0-15.5); MEAN CORPUSCULAR HEMOGLOBIN 30.1 pg (27.0-33.0); MEAN CORPUSCULAR HGB CONC 33.6 g/dl (32.0-36.5); MEAN CORPUSCULAR VOLUME 89.8 fl (80.0-96.0); PLATELET COUNT, AUTOMATED 123 10^3/uL (150-450); RED BLOOD COUNT 3.22 10^6/uL (4.00-5.40); WHITE BLOOD COUNT 6.2 10^3/uL (4.0-10.0)
[2024-05-14 05:15] LABS: BLOOD UREA NITROGEN 7 MG/DL (9-23); CALCIUM LEVEL 7.9 MG/DL (8.3-10.6); CARBON DIOXIDE LEVEL 27 MMOL/L (20-31); CHLORIDE LEVEL 111 MMOL/L (98-107); CREATININE FOR GFR 0.68 MG/DL (0.55-1.30); GLOMERULAR FILTRATION RATE > 60.0 (>45); GLUCOSE, FASTING 247 MG/DL (74-106); POTASSIUM SERUM 4.1 MMOL/L (3.5-5.1); SODIUM LEVEL 141 MMOL/L (136-145)
[2024-05-14] MEDS ORDERED: FIAS100I2 INJ (12:37)
[2024-05-14] MEDS ORDERED: LANTINJ4 SC (12:37)
== END 2024-05-14 14:12 | disposition home or self-care (01) | DRG 637 ==
LOC: M ED 22:15 → EDBD 22:15 → M ED INP 05-11 03:23 → M ICU 05-11 05:54
PROVIDERS: ADMIT Student in an Organized Health Care Education/Training Program; ATTEND Internal Medicine
PROC: 02HV33Z Insertion of Infusion Device into Superior Vena Cava, Percutaneous Approach (ICD-10-PCS; principal; 2024-05-11)
PROC: 04HK33Z Insertion of Infusion Device into Right Femoral Artery, Percutaneous Approach (ICD-10-PCS; 2024-05-11)
DX: E10.10 Type 1 diabetes mellitus with ketoacidosis without coma (principal); G93.41 Metabolic encephalopathy; K22.6 Gastro-esophageal laceration-hemorrhage syndrome; U07.1 COVID-19; R57.1 Hypovolemic shock; N17.9 Acute kidney failure, unspecified; K92.0 Hematemesis; I24.89 Other forms of acute ischemic heart disease; I10 Essential (primary) hypertension; F32.A Depression, unspecified; E03.9 Hypothyroidism, unspecified; I25.5 Ischemic cardiomyopathy; E78.5 Hyperlipidemia, unspecified; I25.10 Atherosclerotic heart disease of native coronary artery without angina pectoris; K21.9 Gastro-esophageal reflux disease without esophagitis; I25.2 Old myocardial infarction; N30.90 Cystitis, unspecified without hematuria; D64.9 Anemia, unspecified; E86.1 Hypovolemia; Z66 Do not resuscitate; R41.0 Disorientation, unspecified; Z79.82 Long term (current) use of aspirin; Z79.899 Other long term (current) drug therapy; Z79.4 Long term (current) use of insulin; Z87.891 Personal history of nicotine dependence; E10.319 Type 1 diabetes mellitus with unspecified diabetic retinopathy without macular edema

== ENCOUNTER → 2024-05-17 | Outpatient (REF) | payer MEDICARE, MEDICAID ==
[~2024-05-17] MED LIST changes: +ASPI-615 PO; +ENTR1TAB PO; +METO1TAB32 PO; +PANT40TA29 PO; +SPIR-10 PO
== END ==
LOC: M SFHCWAGY 12:35
PROVIDERS: ATTEND Nurse Practitioner Family
DX: Z12.4 Encounter for screening for malignant neoplasm of cervix (principal); R87.612 Low grade squamous intraepithelial lesion on cytologic smear of cervix (LGSIL)

== ENCOUNTER → 2024-05-17 | Outpatient (CLI) | payer OTHER | LOC: M WHC 08:53 | PROVIDERS: ATTEND Nurse Practitioner Family | DX: Z12.31 Encounter for screening mammogram for malignant neoplasm of breast (principal) ==

== ENCOUNTER → 2024-07-12 | Outpatient (REF) | payer OTHER, MEDICAID, MEDICARE | LOC: M SFHCWAGY 15:15 | PROVIDERS: ATTEND Specialist | DX: R87.612 Low grade squamous intraepithelial lesion on cytologic smear of cervix (LGSIL) (principal) ==

== ENCOUNTER 2024-08-14 10:02 | Inpatient (IN) | payer MEDICAID, MEDICARE, OTHER ==
[~2024-08-14] VITALS: Ht 167.6 cm; Wt 54.5 kg
[2024-08-14] VITALS (46 sets, daily range): BP systolic 71–113; BP diastolic 36–59; TEMP 98.6–98.8; O2SAT 92–100
[2024-08-14] MEDS ORDERED: INSULIN IV RATE CHANGE DOCUMENTATION ML/HR XX SCH (10:40)
[2024-08-14 10:41] LABS: VENOUS BASE EXCESS -13.6 (-2.0-2.0); VENOUS HCO3 11.9 MMOL/L (23.0-27.0); VENOUS O2 SATURATION 87.3 % (60.0-80.0); VENOUS PARTIAL PRESSURE CO2 27.5 mmHg (38.0-50.0); VENOUS PARTIAL PRESSURE O2 59.4 mmHg (30.0-50.0); VENOUS PH 7.255 UNITS (7.330-7.430); VENOUS STANDARD HCO3 13.9 MMOL/L; VENOUS TOTAL CO2 12.8 MMOL/L (24.0-28.0)
[2024-08-14] MEDS: NS 1,000 ML IV ONE ×3 (10:41→11:40)
[2024-08-14] MEDS: HumuLIN R (REGULAR) INSULIN (NovoLIN R) **100U/ML** PER UNIT IV ONE (10:46)
[2024-08-14] MEDS: INSULIN REGULAR IN 0.9 % NACL 100 UNIT in IV 1 EA IV SCH ×2 (10:47→12:17)
[2024-08-14 10:52] LABS: BASO % 0.1 % (0.0-1.0); HEMATOCRIT 37.9 % (36.0-47.0); HEMOGLOBIN 12.8 g/dl (12.0-15.5); LYMPH # 0.8 10^3/uL (1.5-5.0); LYMPH % 8.1 % (24.0-44.0); MEAN CORPUSCULAR HEMOGLOBIN 31.4 pg (27.0-33.0); MEAN CORPUSCULAR HGB CONC 33.8 g/dl (32.0-36.5); MEAN CORPUSCULAR VOLUME 93.1 fl (80.0-96.0); MONO # 0.7 10^3/uL (0.0-0.8); MONO % 7.8 % (2.0-8.0); NEUTROPHILS # 7.8 10^3/uL (1.5-8.5); NEUTROPHILS % 83.7 % (36.0-66.0); PLATELET COUNT, AUTOMATED 212 10^3/uL (150-450); RED BLOOD COUNT 4.07 10^6/uL (4.00-5.40); WHITE BLOOD COUNT 9.3 10^3/uL (4.0-10.0)
[2024-08-14] MEDS: ONDANSETRON 4MG 2ML VIAL IV ONE (10:56)
[2024-08-14 11:19] LABS: LIPASE 17 U/L (12-53)
[2024-08-14 11:21] LABS: ALBUMIN 3.8 G/DL (3.2-5.2); ALKALINE PHOSPHATASE 88 U/L (35-104); ALT/SGPT 17 U/L (7.0-40); AST/SGOT 19 U/L (<34); BILIRUBIN,DIRECT 0.3 MG/DL (<0.4); BILIRUBIN,TOTAL 0.7 MG/DL (0.3-1.2); MAGNESIUM LEVEL 2.1 MG/DL (1.8-2.4); PHOSPHORUS LEVEL 6.5 MG/DL (2.4-5.1); TOTAL PROTEIN 6.9 G/DL (5.7-8.2)
[2024-08-14 11:24] LABS: ACETONE/KETONE > 4.50 MMOL/L (0.02-0.27)
[2024-08-14 11:25] LABS: OSMOLALITY SERUM 333 MOSM/KG (280-301)
[2024-08-14 11:38] LABS: BLOOD UREA NITROGEN 42 MG/DL (9-23); CALCIUM LEVEL 10.3 MG/DL (8.3-10.6); CARBON DIOXIDE LEVEL 11 MMOL/L (20-31); CHLORIDE LEVEL 96 MMOL/L (98-107); GLUCOSE, FASTING 538 MG/DL (74-106); POTASSIUM SERUM 5.2 MMOL/L (3.5-5.1); SODIUM LEVEL 134 MMOL/L (136-145)
[2024-08-14 11:39] LABS: CREATININE FOR GFR 2.17 MG/DL (0.55-1.30); GLOMERULAR FILTRATION RATE 24.2 (>45)
[2024-08-14 11:41] LABS: HEMOGLOBIN A1c 8.2 % (4.0-6.0)
[2024-08-14] MEDS: D5W/0.45% SODIUM CHLORIDE 1,000 ML IV SCH (12:15)
[2024-08-14] MEDS: LR 1,000 ML IV ONE (13:04)
[2024-08-14] MEDS ORDERED: FIAS100I2 SC (13:18)
[2024-08-14] MEDS ORDERED: TIRZ5PEN INJ (13:18)
[2024-08-14] MEDS ORDERED: HOME MED LIST COMPLETE! XX SCH (13:20)
[2024-08-14] MEDS: VASOPRESSIN IN 0.9 % NACL 20 UNIT in IV 1 EA IV SCH (14:31)
[2024-08-14] MEDS: INSULIN IV RATE CHANGE DOCUMENTATION ML/HR XX SCH (15:10)
[2024-08-14] MEDS: cefTRIAXone SOD 1 GM in DEXTROSE 5% (D5W) ADV/MINI-BAG 50 ML IV SCH (15:56)
[2024-08-14 16:06] LABS: CALCIUM LEVEL 8.3 MG/DL (8.3-10.6); CREATININE FOR GFR 1.59 MG/DL (0.55-1.30); GLOMERULAR FILTRATION RATE 34.6 (>45); PHOSPHORUS LEVEL 1.5 MG/DL (2.4-5.1); POTASSIUM SERUM 3.3 MMOL/L (3.5-5.1)
[2024-08-14] MEDS: KCL 20MEQ IN 100ML SWI (KRUN) 20 MEQ in IV 1 EA IV SCH (16:47)
[2024-08-14] MEDS: ACETAMINOPHEN 325 MG TAB PO PRN (17:35)
[2024-08-14] MEDS: DOBUTamine HCL 500,000 MCG in IV 1 EA IV SCH (18:37)
[2024-08-14 19:59] LABS: CALCIUM LEVEL 8.6 MG/DL (8.3-10.6); CREATININE FOR GFR 1.47 MG/DL (0.55-1.30); GLOMERULAR FILTRATION RATE 37.9 (>45); PHOSPHORUS LEVEL 1.9 MG/DL (2.4-5.1)
[2024-08-14] MEDS: KETOROLAC 30 MG/ML 1ML VIAL IV ONE (20:09)
[2024-08-14] MEDS: VENLAFAXINE **XR** 75MG CAPSULE PO SCH (20:10)
[2024-08-14] MEDS: VENLAFAXINE **XR** 37.5 MG CAPSULE PO SCH (20:10)
[2024-08-14] MEDS: ASPIRIN 81MG ENTERIC TABLET PO SCH (20:11)
[2024-08-14] MEDS: ATORVASTATIN 20 MG TAB PO SCH (20:11)
[2024-08-14] MEDS: LEVEMIR (INSULIN DETEMIR) 1 UNITS/0.01ML SC SCH (20:59)
[2024-08-14] MEDS: POTASSIUM PHOSPHATE INJ 30 MMOL in D5W 500 ML IV ONE (21:12)
[2024-08-14] MEDS ORDERED: NS 0.45% 1,000 ML IV SCH (22:30)
[2024-08-14 23:32] LABS: CALCIUM LEVEL 7.9 MG/DL (8.3-10.6); CREATININE FOR GFR 1.39 MG/DL (0.55-1.30); GLOMERULAR FILTRATION RATE 40.4 (>45); PHOSPHORUS LEVEL 2.5 MG/DL (2.4-5.1); POTASSIUM SERUM 4.8 MMOL/L (3.5-5.1)
[2024-08-14 23:37] LABS: APPEARANCE, URINE HAZY (CLEAR); BACTERIA, URINE AUTO 1+ (NEGATIVE); BILIRUBIN, URINE AUTO NEGATIVE (NEGATIVE); BLOOD, URINE BLOOD 1+ (NEGATIVE); COLOR, URINE YELLOW (YELLOW); GLUCOSE, URINE (UA) AUTO 2+ mg/dL (NEGATIVE); KETONE, URINE AUTO 1+ mg/dL (NEGATIVE); LEUKOCYTE ESTERASE, URINE AUTO 1+ (NEGATIVE); MUCUS, URINE SMALL (NEGATIVE); NITRITE, URINE AUTO NEGATIVE (NEGATIVE); PROTEIN, URINE AUTO NEGATIVE (NEGATIVE); RBC, URINE AUTO 9 /HPF (0-3); SPECIFIC GRAVITY URINE AUTO 1.018 (1.002-1.035); SQUAMOUS EPITHELIAL CELL UR AU 2 /HPF (0-6); UROBILINOGEN, URINE AUTO 0.2 mg/dL (0.0-2.0); WBC, URINE AUTO 7 /HPF (0-3)
[2024-08-15] VITALS (42 sets, daily range): BP systolic 85–117; BP diastolic 48–59; TEMP 97.6–98.9; O2SAT 94–99
[2024-08-15] MEDS ORDERED: DEXTROSE 50% 50ML SYRINGE IV PRN (03:35)
[2024-08-15] MEDS ORDERED: GLUCOSE 4 GM CHEW PO PRN (03:35)
[2024-08-15] MEDS ORDERED: GLUCAGON INJ 1MG VIAL SC PRN (03:35)
[2024-08-15 05:01] LABS: CALCIUM LEVEL 7.9 MG/DL (8.3-10.6); CREATININE FOR GFR 1.23 MG/DL (0.55-1.30); GLOMERULAR FILTRATION RATE 46.5 (>45); POTASSIUM SERUM 4.9 MMOL/L (3.5-5.1)
[2024-08-15] MEDS: ENOXAPARIN 40MG/0.4ML SYRINGE (J1650 PER 10MG) SC SCH (08:43)
[2024-08-15] MEDS: PANTOPRAZOLE 40MG VIAL IV SCH (08:43)
[2024-08-15] MEDS: INSULIN LISPRO (NovoLOG) PER UNIT SC SCH ×2 (08:43→20:04)
[2024-08-15] MEDS: SODIUM BICARBONATE 325 MG TAB PO SCH (08:44)
[2024-08-15] MEDS: CLOPIDOGREL 75 MG TAB PO SCH (08:44)
[2024-08-15] MEDS: LEVOTHYROXINE 88MCG TABLET (0.088 MG) PO SCH (08:44)
[2024-08-15] MEDS: FUROSEMIDE 20MG/2ML VIAL IV ONE (08:45)
[2024-08-15 13:27] LABS: CALCIUM LEVEL 8.7 MG/DL (8.3-10.6); CREATININE FOR GFR 1.02 MG/DL (0.55-1.30); GLOMERULAR FILTRATION RATE 57.7 (>45); MAGNESIUM LEVEL 1.6 MG/DL (1.8-2.4); PHOSPHORUS LEVEL 3.2 MG/DL (2.4-5.1); POTASSIUM SERUM 4.2 MMOL/L (3.5-5.1)
[2024-08-15] MEDS: MAG SULF 1GM/100ML (MAG RUN) 1 GM in IV 1 EA IV ONE (15:03)
[2024-08-16] VITALS (11 sets, daily range): BP systolic 95–118; BP diastolic 52–60; TEMP 98–98.9; O2SAT 97–99
[2024-08-16] MEDS ORDERED: MAG SULF 1GM/100ML (MAG RUN) 1 GM in IV 1 EA IV ONE (08:00)
[2024-08-16] MEDS: METOPROLOL SUCC *XL* 12.5MG PER 1/2 TAB (TopROL *XL*) PO SCH (08:42)
[2024-08-16 09:34] LABS: BLOOD UREA NITROGEN 21 MG/DL (9-23); CARBON DIOXIDE LEVEL 24 MMOL/L (20-31); CHLORIDE LEVEL 108 MMOL/L (98-107); CREATININE FOR GFR 0.72 MG/DL (0.55-1.30); GLOMERULAR FILTRATION RATE > 60.0 (>45); GLUCOSE, FASTING 136 MG/DL (74-106); MAGNESIUM LEVEL 1.9 MG/DL (1.8-2.4); POTASSIUM SERUM 4.3 MMOL/L (3.5-5.1); SODIUM LEVEL 139 MMOL/L (136-145)
[2024-08-16] MEDS ORDERED: CEFD1CAP9 PO (14:46)
== END 2024-08-16 16:08 | disposition home or self-care (01) | DRG 637 ==
LOC: M ED 10:02 → EDBD 10:02 → M ED INP 12:05 → M ICU 13:22
PROVIDERS: ADMIT Internal Medicine Pulmonary Disease; ATTEND Student in an Organized Health Care Education/Training Program
PROC: 05HN33Z Insertion of Infusion Device into Left Internal Jugular Vein, Percutaneous Approach (ICD-10-PCS; principal; 2024-08-14)
DX: E10.10 Type 1 diabetes mellitus with ketoacidosis without coma (principal); G93.41 Metabolic encephalopathy; R57.1 Hypovolemic shock; R57.0 Cardiogenic shock; N17.9 Acute kidney failure, unspecified; N39.0 Urinary tract infection, site not specified; I10 Essential (primary) hypertension; E03.9 Hypothyroidism, unspecified; I25.2 Old myocardial infarction; I25.10 Atherosclerotic heart disease of native coronary artery without angina pectoris; R11.0 Nausea; E10.43 Type 1 diabetes mellitus with diabetic autonomic (poly)neuropathy; K31.84 Gastroparesis; E10.319 Type 1 diabetes mellitus with unspecified diabetic retinopathy without macular edema; I25.5 Ischemic cardiomyopathy; E83.42 Hypomagnesemia; I27.20 Pulmonary hypertension, unspecified; K21.9 Gastro-esophageal reflux disease without esophagitis; Z79.899 Other long term (current) drug therapy; Z79.82 Long term (current) use of aspirin; E55.9 Vitamin D deficiency, unspecified; Z87.891 Personal history of nicotine dependence; Z91.148 Patient's other noncompliance with medication regimen for other reason; F32.A Depression, unspecified

== ENCOUNTER 2024-09-18 10:17 | Inpatient (IN) | payer MEDICAID, MEDICARE, OTHER ==
[2024-09-18] VITALS (42 sets, daily range): BP systolic 77–111; BP diastolic 39–59; TEMP 98.2–99.5; O2SAT 74–100
[~2024-09-18] VITALS: Ht 160 cm; Wt 62.1 kg
[~2024-09-18 10:17] MED LIST changes: +CEFD1CAP9 PO; +FIAS100I2 SC; +TIRZ5PEN INJ
[2024-09-18] MEDS: NS (Normal Saline) 0.9% 1,000 ML IV ONE ×2 (10:28→12:30)
[2024-09-18 10:51] LABS: VENOUS BASE EXCESS -17.8 (-2.0-2.0); VENOUS HCO3 10.7 MMOL/L (23.0-27.0); VENOUS O2 SATURATION 61.4 % (60.0-80.0); VENOUS PARTIAL PRESSURE O2 40.3 mmHg (30.0-50.0); VENOUS PH 7.114 UNITS (7.330-7.430); VENOUS STANDARD HCO3 10.9 MMOL/L; VENOUS TOTAL CO2 11.7 MMOL/L (24.0-28.0)
[2024-09-18 10:59] LABS: BASO % 0.1 % (0.0-1.0); HEMATOCRIT 42.2 % (36.0-47.0); HEMOGLOBIN 13.3 g/dl (12.0-15.5); LYMPH # 0.7 10^3/uL (1.5-5.0); LYMPH % 3.5 % (24.0-44.0); MEAN CORPUSCULAR HEMOGLOBIN 31.3 pg (27.0-33.0); MEAN CORPUSCULAR HGB CONC 31.5 g/dl (32.0-36.5); MEAN CORPUSCULAR VOLUME 99.3 fl (80.0-96.0); MONO # 0.5 10^3/uL (0.0-0.8); MONO % 2.4 % (2.0-8.0); NEUTROPHILS # 19.8 10^3/uL (1.5-8.5); NEUTROPHILS % 93.5 % (36.0-66.0); PLATELET COUNT, AUTOMATED 314 10^3/uL (150-450); RED BLOOD COUNT 4.25 10^6/uL (4.00-5.40); WHITE BLOOD COUNT 21.2 10^3/uL (4.0-10.0)
[2024-09-18] MEDS: PIPERACILLIN/TAZOBACTAM SOD 4.5 GM in DEXTROSE 5% (D5W) ADV/MINI-BAG 50 ML IV ONE (11:15)
[2024-09-18 11:16] LABS: ABG BASE EXCESS -12.6 (-2.0-2.0); ABG O2 SATURATION 96.1 % (95.0-99.0); ABG PARTIAL PRESSURE CO2 20.8 mmHg (35.0-45.0); ABG STANDARD HCO3 14.7 MMOL/L. (22.0-26.0); ABG TOTAL CO2 11.6 MMOL/L (23.0-31.0); ABG pH (ARTERIAL) 7.341 UNITS (7.350-7.450)
[2024-09-18 11:17] LABS: CK-MB VALUE MASS 1.5 NG/ML (<3.6); ETHYL ALCOHOL (ETHANOL) 0.006 % (0.000-0.010); LIPASE 17 U/L (12-53)
[2024-09-18 11:18] LABS: CPK CREATINE PHOSPHOKINASE 40 U/L (34-145); MB/CK RELATIVE INDEX 3.75 (< OR =4)
[2024-09-18 12:00] LABS: ACETONE/KETONE > 4.50 MMOL/L (0.02-0.27); ALKALINE PHOSPHATASE 106 U/L (35-104); ALT/SGPT 21 U/L (7.0-40); AST/SGOT 20 U/L (<34); BILIRUBIN,DIRECT 0.3 MG/DL (<0.4); BILIRUBIN,TOTAL 1.1 MG/DL (0.3-1.2); BLOOD UREA NITROGEN 48 MG/DL (9-23); CALCIUM LEVEL 10.1 MG/DL (8.3-10.6); CARBON DIOXIDE LEVEL 11 MMOL/L (20-31); CHLORIDE LEVEL 93 MMOL/L (98-107); CREATININE FOR GFR 2.19 MG/DL (0.55-1.30); GLOMERULAR FILTRATION RATE 23.9 (>45); GLUCOSE, FASTING 678 MG/DL (74-106); MAGNESIUM LEVEL 2.3 MG/DL (1.8-2.4); PHOSPHORUS LEVEL 6.4 MG/DL (2.4-5.1); POTASSIUM SERUM 4.5 MMOL/L (3.5-5.1); SODIUM LEVEL 137 MMOL/L (136-145); TOTAL PROTEIN 7.1 G/DL (5.7-8.2)
[2024-09-18 12:09] LABS: CK-MB VALUE MASS < 1.0 NG/ML (<3.6)
[2024-09-18] MEDS ORDERED: INSULIN IV RATE CHANGE DOCUMENTATION ML/HR XX SCH (12:10)
[2024-09-18 12:12] LABS: OSMOLALITY SERUM 351 MOSM/KG (280-301)
[2024-09-18 12:13] LABS: CPK CREATINE PHOSPHOKINASE 41 U/L (34-145); MB/CK RELATIVE INDEX 2.43 (< OR =4)
[2024-09-18] MEDS ORDERED: METO1TAB32 PO (12:34)
[2024-09-18] MEDS ORDERED: SPIR-10 PO (12:34)
[2024-09-18] MEDS ORDERED: HOME MED LIST COMPLETE! XX SCH (12:35)
[2024-09-18] MEDS: HumuLIN R (REGULAR) INSULIN (NovoLIN R) **100U/ML** PER UNIT IV ONE (12:36)
[2024-09-18] MEDS: INSULIN REGULAR IN 0.9 % NACL 100 UNIT in IV 1 EA IV SCH ×2 (12:44→14:16)
[2024-09-18] MEDS ORDERED: ALBUTEROL SULFATE 2.5MG/0.5ML INH NEB SOLN NEB PRN (13:00)
[2024-09-18 13:18] LABS: VENOUS BASE EXCESS -12.6 (-2.0-2.0); VENOUS HCO3 11.4 MMOL/L (23.0-27.0); VENOUS PARTIAL PRESSURE CO2 22.4 mmHg (38.0-50.0); VENOUS PARTIAL PRESSURE O2 246.8 mmHg (30.0-50.0); VENOUS PH 7.323 UNITS (7.330-7.430); VENOUS STANDARD HCO3 14.7 MMOL/L
[2024-09-18 14:00] LABS: CREATININE FOR GFR 1.82 MG/DL (0.55-1.30); GLOMERULAR FILTRATION RATE 29.6 (>45); POTASSIUM SERUM 4.6 MMOL/L (3.5-5.1)
[2024-09-18] MEDS: LR 1,000 ML IV ONE ×2 (14:14→20:28)
[2024-09-18] MEDS: HEPARIN SOD (PORCINE) 5000UNITS/ML 1ML VIAL/SYRINGE SC SCH (14:14)
[2024-09-18] MEDS: INSULIN IV RATE CHANGE DOCUMENTATION ML/HR XX SCH (15:11)
[2024-09-18] MEDS: LACTATED RINGER'S 1000 ML IV ONE (15:46)
[2024-09-18] MEDS: KCL 20MEQ IN 0.45NS 1000ML 1,000 ML IV SCH (16:19)
[2024-09-18] MEDS: NS 500 ML IV ONE (16:35)
[2024-09-18 17:19] LABS: CALCIUM LEVEL 5.9 MG/DL (8.3-10.6); CREATININE FOR GFR 1.05 MG/DL (0.55-1.30); GLOMERULAR FILTRATION RATE 55.8 (>45); POTASSIUM SERUM 7.7 MMOL/L (3.5-5.1)
[2024-09-18] MEDS ORDERED: NOREPINEPHRINE BITARTRATE 16 MG in D5W 484 ML IV SCH (17:40)
[2024-09-18] MEDS: NOREPINEPHRINE 4MG IN D5 250ML 4 MG in IV 1 EA IV STA (18:22)
[2024-09-18 18:23] LABS: CALCIUM LEVEL 8.5 MG/DL (8.3-10.6); CREATININE FOR GFR 1.44 MG/DL (0.55-1.30); GLOMERULAR FILTRATION RATE 38.8 (>45); POTASSIUM SERUM 4.2 MMOL/L (3.5-5.1)
[2024-09-18] MEDS: PIPERACILLIN/TAZOBACTAM SOD 4.5 GM in DEXTROSE 5% (D5W) ADV/MINI-BAG 50 ML IV SCH (18:37)
[2024-09-18] MEDS ORDERED: D5W/0.45% SODIUM CHLORIDE 1,000 ML IV SCH (20:45)
[2024-09-18] MEDS: KCL 20MEQ IN D5/0.45NS 1000ML 1,000 ML IV SCH (20:51)
[2024-09-18 21:01] LABS: CALCIUM LEVEL 8.6 MG/DL (8.3-10.6); CREATININE FOR GFR 1.3 MG/DL (0.55-1.30); GLOMERULAR FILTRATION RATE 43.6 (>45); POTASSIUM SERUM 3.7 MMOL/L (3.5-5.1)
[2024-09-19] VITALS (79 sets, daily range): BP systolic 73–138; BP diastolic 40–60; TEMP 97.7–99.8; O2SAT 98–100
[2024-09-19] MEDS: NOREPINEPHRINE 4MG IN D5 250ML 4 MG in IV 1 EA IV SCH (01:50)
[2024-09-19 02:27] LABS: CREATININE FOR GFR 1.15 MG/DL (0.55-1.30); GLOMERULAR FILTRATION RATE 50.3 (>45); POTASSIUM SERUM 3.5 MMOL/L (3.5-5.1)
[2024-09-19] MEDS: LEVEMIR (INSULIN DETEMIR) 1 UNITS/0.01ML SC ONE (03:20)
[2024-09-19 05:04] LABS: HEMATOCRIT 28.4 % (36.0-47.0); MEAN CORPUSCULAR HEMOGLOBIN 31.4 pg (27.0-33.0); MEAN CORPUSCULAR HGB CONC 34.9 g/dl (32.0-36.5); MEAN CORPUSCULAR VOLUME 90.2 fl (80.0-96.0); PLATELET COUNT, AUTOMATED 230 10^3/uL (150-450); RED BLOOD COUNT 3.15 10^6/uL (4.00-5.40); WHITE BLOOD COUNT 16.6 10^3/uL (4.0-10.0)
[2024-09-19 05:06] LABS: HEMOGLOBIN 9.9 g/dl (12.0-15.5)
[2024-09-19 05:21] LABS: ACETONE/KETONE 0.82 MMOL/L (0.02-0.27)
[2024-09-19 05:23] LABS: ALBUMIN 2.7 G/DL (3.2-5.2); BILIRUBIN,TOTAL 1.2 MG/DL (0.3-1.2); CALCIUM LEVEL 7.8 MG/DL (8.3-10.6); CREATININE FOR GFR 1.1 MG/DL (0.55-1.30); GLOMERULAR FILTRATION RATE 52.9 (>45); POTASSIUM SERUM 3.6 MMOL/L (3.5-5.1)
[2024-09-19] MEDS ORDERED: MECLIZINE 25 MG TABLET PO PRN (08:35)
[2024-09-19] MEDS: PANTOPRAZOLE 40MG TAB (PROTONIX) PO SCH (10:02)
[2024-09-19] MEDS: CLOPIDOGREL 75 MG TAB PO SCH (10:02)
[2024-09-19] MEDS: LEVEMIR (INSULIN DETEMIR) 1 UNITS/0.01ML SC SCH (10:02)
[2024-09-19 10:28] LABS: PROCALCITONIN 6.7 ng/ml
[2024-09-19] MEDS: LEVOTHYROXINE 88MCG TABLET (0.088 MG) PO SCH (10:50)
[2024-09-19] MEDS: LR 1,000 ML IV ONE (11:15)
[2024-09-19] MEDS: INSULIN LISPRO (NovoLOG) PER UNIT SC SCH ×3 (12:00→20:51)
[2024-09-19] MEDS: ATORVASTATIN 20 MG TAB PO SCH (20:48)
[2024-09-19] MEDS: ASPIRIN 81MG ENTERIC TABLET PO SCH (20:49)
[2024-09-19] MEDS: VENLAFAXINE **XR** 37.5 MG CAPSULE PO SCH (20:49)
[2024-09-20] VITALS (13 sets, daily range): BP systolic 87–115; BP diastolic 51–73; TEMP 96.3–97.8; O2SAT 97–100
[2024-09-20 08:06] LABS: HEMATOCRIT 28.2 % (36.0-47.0); HEMOGLOBIN 9.6 g/dl (12.0-15.5); MEAN CORPUSCULAR HEMOGLOBIN 31.7 pg (27.0-33.0); MEAN CORPUSCULAR VOLUME 93.1 fl (80.0-96.0); PLATELET COUNT, AUTOMATED 195 10^3/uL (150-450); RED BLOOD COUNT 3.03 10^6/uL (4.00-5.40); WHITE BLOOD COUNT 8.1 10^3/uL (4.0-10.0)
[2024-09-20 08:44] LABS: ALBUMIN 2.5 G/DL (3.2-5.2); ALKALINE PHOSPHATASE 66 U/L (35-104); ALT/SGPT 12 U/L (7.0-40); AST/SGOT 19 U/L (<34); BILIRUBIN,TOTAL 0.9 MG/DL (0.3-1.2); BLOOD UREA NITROGEN 14 MG/DL (9-23); CALCIUM LEVEL 8.1 MG/DL (8.3-10.6); CARBON DIOXIDE LEVEL 27 MMOL/L (20-31); CHLORIDE LEVEL 109 MMOL/L (98-107); CREATININE FOR GFR 0.72 MG/DL (0.55-1.30); GLOMERULAR FILTRATION RATE > 60.0 (>45); GLUCOSE, FASTING 96 MG/DL (74-106); POTASSIUM SERUM 3.5 MMOL/L (3.5-5.1); SODIUM LEVEL 143 MMOL/L (136-145); TOTAL PROTEIN 5.3 G/DL (5.7-8.2)
[2024-09-20] MEDS: MIDODRINE 5 MG TAB PO SCH (09:07)
[2024-09-20] MEDS: cefTRIAXone SOD 2 GM in DEXTROSE 5% (D5W) ADV/MINI-BAG 50 ML IV SCH (09:07)
[2024-09-20] MEDS: METOCLOPRAMIDE INJ 10MG/2ML VIAL IV SCH (12:57)
[2024-09-20] MEDS: AZITHROMYCIN 250MG TABLET PO SCH (12:57)
[2024-09-21 00:11] VITALS: BP 95/50; TEMP 96.8; O2SAT 98
[2024-09-21 04:00] VITALS: BP 93/55; TEMP 98.1; O2SAT 97
[2024-09-21 04:46] LABS: HEMATOCRIT 29.7 % (36.0-47.0); MEAN CORPUSCULAR HEMOGLOBIN 31.4 pg (27.0-33.0); MEAN CORPUSCULAR HGB CONC 33.7 g/dl (32.0-36.5); MEAN CORPUSCULAR VOLUME 93.4 fl (80.0-96.0); PLATELET COUNT, AUTOMATED 190 10^3/uL (150-450); RED BLOOD COUNT 3.18 10^6/uL (4.00-5.40); WHITE BLOOD COUNT 5.6 10^3/uL (4.0-10.0)
[2024-09-21 05:29] LABS: ALBUMIN 2.4 G/DL (3.2-5.2); ALKALINE PHOSPHATASE 91 U/L (35-104); ALT/SGPT 25 U/L (7.0-40); AST/SGOT 36 U/L (<34); BILIRUBIN,TOTAL 0.6 MG/DL (0.3-1.2); BLOOD UREA NITROGEN 16 MG/DL (9-23); CALCIUM LEVEL 7.8 MG/DL (8.3-10.6); CARBON DIOXIDE LEVEL 27 MMOL/L (20-31); CHLORIDE LEVEL 108 MMOL/L (98-107); CREATININE FOR GFR 0.64 MG/DL (0.55-1.30); GLOMERULAR FILTRATION RATE > 60.0 (>45); GLUCOSE, FASTING 42 MG/DL (74-106); SODIUM LEVEL 145 MMOL/L (136-145)
[2024-09-21 08:00] VITALS: BP 117/58; TEMP 98.2; O2SAT 97
[2024-09-21] MEDS: LEVEMIR (INSULIN DETEMIR) 1 UNITS/0.01ML SC SCH (09:00)
[2024-09-21 12:00] VITALS: BP 108/58; TEMP 97.4; O2SAT 97
[2024-09-21] MEDS: MIDODRINE 5 MG TAB PO SCH (13:25)
[2024-09-21 16:00] VITALS: BP 109/55; TEMP 98; O2SAT 99
[2024-09-21 20:38] VITALS: BP 113/59; TEMP 97.6; O2SAT 98
[2024-09-22 00:24] VITALS: BP 101/58; TEMP 97.3; O2SAT 99
[2024-09-22 04:23] VITALS: BP 118/58; TEMP 97.1; O2SAT 96
[2024-09-22 05:01] LABS: BASO % 0.6 % (0.0-1.0); EOS # 0.5 10^3/uL (0.0-0.5); EOS % 9.2 % (0.0-3.0); HEMATOCRIT 29.8 % (36.0-47.0); LYMPH # 1.1 10^3/uL (1.5-5.0); MEAN CORPUSCULAR HEMOGLOBIN 31.5 pg (27.0-33.0); MEAN CORPUSCULAR HGB CONC 33.6 g/dl (32.0-36.5); MONO # 0.5 10^3/uL (0.0-0.8); MONO % 9.9 % (2.0-8.0); NEUTROPHILS # 2.8 10^3/uL (1.5-8.5); NEUTROPHILS % 58.1 % (36.0-66.0); PLATELET COUNT, AUTOMATED 182 10^3/uL (150-450); RED BLOOD COUNT 3.17 10^6/uL (4.00-5.40); WHITE BLOOD COUNT 4.9 10^3/uL (4.0-10.0)
[2024-09-22 05:23] LABS: BLOOD UREA NITROGEN 14 MG/DL (9-23); CALCIUM LEVEL 8.2 MG/DL (8.3-10.6); CARBON DIOXIDE LEVEL 27 MMOL/L (20-31); CHLORIDE LEVEL 107 MMOL/L (98-107); CREATININE FOR GFR 0.62 MG/DL (0.55-1.30); GLOMERULAR FILTRATION RATE > 60.0 (>45); GLUCOSE, FASTING 253 MG/DL (74-106); POTASSIUM SERUM 4.1 MMOL/L (3.5-5.1); SODIUM LEVEL 141 MMOL/L (136-145)
[2024-09-22 08:00] VITALS: BP 108/58; TEMP 97.2; O2SAT 97
[2024-09-22] MEDS: LEVEMIR (INSULIN DETEMIR) 1 UNITS/0.01ML SC SCH (09:00)
[2024-09-22] MEDS ORDERED: REGL5TAB2 PO (11:54)
[2024-09-22] MEDS ORDERED: LANTINJ4 SC (11:54)
[2024-09-22] MEDS ORDERED: MIDO5TA PO (11:54)
[2024-09-22] MEDS ORDERED: CEFD300CAP PO (11:54)
[2024-09-22] MEDS ORDERED: PEN-308 SC (11:54)
[2024-09-22 12:00] VITALS: BP 114/56; TEMP 97; O2SAT 98
[2024-09-22] MEDS: METOCLOPRAMIDE 10MG TAB PO SCH (12:00)
[2024-09-22] MEDS: PREVNAR-20 VACCINE 0.5ML SYRINGE IM.IMMUN ONE (12:08)
[2024-09-22] MEDS ORDERED: CEFDINIR 300 MG CAP (OMNICEF) PO SCH (13:00)
[2024-09-23 18:44] LABS: URINE STREP PNEUMONIAE ANTIGEN NOT DETECTED (NOT DETECT)
== END 2024-09-22 13:15 | disposition home health service (06) | DRG 637 ==
LOC: EDBD 10:17 → M ED 10:17 → M ED INP 12:44 → M ICU 13:26
PROVIDERS: ADMIT Internal Medicine Pulmonary Disease; ATTEND Internal Medicine
PROC: 05HM33Z Insertion of Infusion Device into Right Internal Jugular Vein, Percutaneous Approach (ICD-10-PCS; principal; 2024-09-18)
DX: E10.10 Type 1 diabetes mellitus with ketoacidosis without coma (principal); J18.9 Pneumonia, unspecified organism; R57.1 Hypovolemic shock; N17.9 Acute kidney failure, unspecified; I50.22 Chronic systolic (congestive) heart failure; I11.0 Hypertensive heart disease with heart failure; F32.A Depression, unspecified; K31.84 Gastroparesis; I25.2 Old myocardial infarction; E03.9 Hypothyroidism, unspecified; E10.43 Type 1 diabetes mellitus with diabetic autonomic (poly)neuropathy; E10.319 Type 1 diabetes mellitus with unspecified diabetic retinopathy without macular edema; F41.9 Anxiety disorder, unspecified; I25.10 Atherosclerotic heart disease of native coronary artery without angina pectoris; F39 Unspecified mood [affective] disorder; I25.5 Ischemic cardiomyopathy; Z79.4 Long term (current) use of insulin; K21.9 Gastro-esophageal reflux disease without esophagitis; Z79.899 Other long term (current) drug therapy; Z79.82 Long term (current) use of aspirin; Z91.148 Patient's other noncompliance with medication regimen for other reason; Z87.891 Personal history of nicotine dependence; Z91.119 Patient's noncompliance with dietary regimen due to unspecified reason

== ENCOUNTER → 2024-12-18 | Outpatient (CLI) | payer MEDICARE ==
[~2024-12-18] MED LIST changes: +CEFD300CAP PO; +MIDO5TA PO; +PEN-308 SC
== END ==
LOC: M PLAIMG 10:50
PROVIDERS: ATTEND Family Medicine
DX: J18.9 Pneumonia, unspecified organism (principal)

== ENCOUNTER 2025-01-01 07:54 | Inpatient (IN) | payer MEDICARE ==
[~2025-01-01] VITALS: Ht 160 cm; Wt 69.2 kg
[2025-01-01] VITALS (29 sets, daily range): BP systolic 82–114; BP diastolic 44–55; TEMP 97.6–100.1; O2SAT 96–100
[2025-01-01 08:53] LABS: VENOUS BASE EXCESS -21.9 (-2.0-2.0); VENOUS HCO3 6.9 MMOL/L (23.0-27.0); VENOUS PARTIAL PRESSURE CO2 24.7 mmHg (38.0-50.0); VENOUS PARTIAL PRESSURE O2 134.5 mmHg (30.0-50.0); VENOUS PH 7.064 UNITS (7.330-7.430); VENOUS TOTAL CO2 7.7 MMOL/L (24.0-28.0)
[2025-01-01] MEDS: NS (Normal Saline) 0.9% 1,000 ML IV ONE ×7 (08:54→17:47)
[2025-01-01] MEDS: LIDOCAINE 2% 5ML JELLY UROJET TOP ONE (08:54)
[2025-01-01] MEDS ORDERED: INSULIN IV RATE CHANGE DOCUMENTATION ML/HR XX SCH ×2 (09:05→13:05)
[2025-01-01 09:20] LABS: HEMATOCRIT 33.8 % (36.0-47.0); HEMOGLOBIN 11.1 g/dl (12.0-15.5); MEAN CORPUSCULAR HEMOGLOBIN 30.3 pg (27.0-33.0); MEAN CORPUSCULAR HGB CONC 32.8 g/dl (32.0-36.5); MEAN CORPUSCULAR VOLUME 92.3 fl (80.0-96.0); PLATELET COUNT, AUTOMATED 224 10^3/uL (150-450); RED BLOOD COUNT 3.66 10^6/uL (4.00-5.40); WHITE BLOOD COUNT 23.9 10^3/uL (4.0-10.0)
[2025-01-01] MEDS: cefTRIAXone SOD 2 GM in DEXTROSE 5% (D5W) ADV/MINI-BAG 50 ML IV ONE (09:21)
[2025-01-01] MEDS: INSULIN REGULAR IN 0.9 % NACL 100 UNIT in IV 1 EA IV SCH ×2 (09:22→21:58)
[2025-01-01 09:39] LABS: HEMOGLOBIN A1c 9.1 % (4.0-6.0)
[2025-01-01 09:40] LABS: OSMOLALITY SERUM 347 MOSM/KG (280-301)
[2025-01-01 09:43] LABS: LIPASE 16 U/L (12-53)
[2025-01-01 09:48] LABS: LYMPHOCYTES 14 % (16-44); NEUTROPHILS 73 % (28-66)
[2025-01-01 09:49] LABS: PLATELET ESTIMATE NORMAL (NORMAL)
[2025-01-01 09:51] LABS: TOXIC VACUOLATION 3+
[2025-01-01 09:53] LABS: KETONE, URINE AUTO RFX 1+ mg/dL (NEGATIVE); LEUKOCYTE ESTERASE UR AUTO RFX NEGATIVE (NEGATIVE); MUCUS, URINE RFX SMALL (NEGATIVE); NITRITE, URINE AUTO RFX NEGATIVE (NEGATIVE); RBC, URINE AUTO RFX 1 /HPF (0-3); SQUAM EPITHELIAL CELL UR AURFX 0 /HPF (0-6); WBC, URINE AUTO RFX 0 /HPF (0-3)
[2025-01-01 09:55] LABS: ACETONE/KETONE > 4.50 MMOL/L (0.02-0.27); ALBUMIN 2.8 G/DL (3.2-5.2); ALKALINE PHOSPHATASE 105 U/L (35-104); ALT/SGPT 68 U/L (7.0-40); AST/SGOT 28 U/L (<34); BILIRUBIN,DIRECT 0.3 MG/DL (<0.4); BILIRUBIN,TOTAL 0.7 MG/DL (0.3-1.2); BLOOD UREA NITROGEN 29 MG/DL (9-23); CALCIUM LEVEL 7.8 MG/DL (8.3-10.6); CARBON DIOXIDE LEVEL < 10.0 MMOL/L (20-31); CHLORIDE LEVEL 103 MMOL/L (98-107); CREATININE FOR GFR 1.19 MG/DL (0.55-1.30); GLOMERULAR FILTRATION RATE 50.1 (>45); GLUCOSE, FASTING 809 MG/DL (74-106); PHOSPHORUS LEVEL 7.2 MG/DL (2.4-5.1); SODIUM LEVEL 139 MMOL/L (136-145)
[2025-01-01] MEDS ORDERED: ISOVUE-370 76% 100ML VIAL As Ordered ONE (10:12)
[2025-01-01] MEDS: NS 500 ML IV ONE ×2 (10:54→11:00)
[2025-01-01] MEDS: NOREPINEPHRINE 4MG IN D5 250ML 4 MG in IV 1 EA IV SCH (12:08)
[2025-01-01] MEDS ORDERED: INSULIN REGULAR IN 0.9 % NACL 100 UNIT in IV 1 EA IV SCH (13:05)
[2025-01-01 14:43] LABS: CALCIUM LEVEL 8.2 MG/DL (8.3-10.6); CREATININE FOR GFR 0.98 MG/DL (0.55-1.30); GLOMERULAR FILTRATION RATE 63.3 (>45); POTASSIUM SERUM 4.8 MMOL/L (3.5-5.1)
[2025-01-01] MEDS: NS (Normal Saline) 0.9% 1,000 ML IV SCH (14:50)
[2025-01-01] MEDS: INSULIN IV RATE CHANGE DOCUMENTATION ML/HR XX SCH (15:14)
[2025-01-01] MEDS ORDERED: HOME MED LIST COMPLETE! XX SCH (17:20)
[2025-01-01 18:27] LABS: VENOUS BASE EXCESS -9.4 (-2.0-2.0); VENOUS HCO3 17.1 MMOL/L (23.0-27.0); VENOUS PARTIAL PRESSURE CO2 39.5 mmHg (38.0-50.0); VENOUS PARTIAL PRESSURE O2 207.5 mmHg (30.0-50.0); VENOUS PH 7.255 UNITS (7.330-7.430); VENOUS STANDARD HCO3 17.1 MMOL/L; VENOUS TOTAL CO2 18.3 MMOL/L (24.0-28.0)
[2025-01-01 18:46] LABS: VENOUS O2 SATURATION 99.4 % (60.0-80.0)
[2025-01-01 18:55] LABS: CALCIUM LEVEL 6.9 MG/DL (8.3-10.6); CREATININE FOR GFR 0.85 MG/DL (0.55-1.30); POTASSIUM SERUM 3.5 MMOL/L (3.5-5.1)
[2025-01-01] MEDS: KCL 10MEQ/100ML SWI (KRUN) 10 MEQ in IV 1 EA IV SCH (19:26)
[2025-01-01] MEDS: KCL 40MEQ in NS 1000ML 1,000 ML IV SCH (20:21)
[2025-01-01] MEDS: KCL 40MEQ IN D5/NS 1000ML 1,000 ML IV SCH (20:41)
[2025-01-01] MEDS ORDERED: INSULIN REGULAR 100UNITS IN 0.9% SODIUM CHLORIDE 100ML IVBAG As Ordered ONE (21:56)
[2025-01-01 23:22] LABS: VENOUS BASE EXCESS -7.1 (-2.0-2.0); VENOUS HCO3 16.7 MMOL/L (23.0-27.0); VENOUS O2 SATURATION 93.8 % (60.0-80.0); VENOUS PARTIAL PRESSURE CO2 28.8 mmHg (38.0-50.0); VENOUS PARTIAL PRESSURE O2 66.4 mmHg (30.0-50.0); VENOUS STANDARD HCO3 18.7 MMOL/L; VENOUS TOTAL CO2 17.5 MMOL/L (24.0-28.0)
[2025-01-02] VITALS (34 sets, daily range): BP systolic 89–147; BP diastolic 49–68; TEMP 97.6–99.5; O2SAT 97–100
[2025-01-02 00:30] LABS: CALCIUM LEVEL 7.4 MG/DL (8.3-10.6); CREATININE FOR GFR 0.74 MG/DL (0.55-1.30); GLOMERULAR FILTRATION RATE 88.6 (>45); MAGNESIUM LEVEL 1.5 MG/DL (1.8-2.4); PHOSPHORUS LEVEL 1.1 MG/DL (2.4-5.1); POTASSIUM SERUM 4.8 MMOL/L (3.5-5.1)
[2025-01-02] MEDS: MAG SULF 1GM/100ML (MAG RUN) 1 GM in IV 1 EA IV SCH (00:50)
[2025-01-02 06:12] LABS: VENOUS BASE EXCESS -8.5 (-2.0-2.0); VENOUS HCO3 17.2 MMOL/L (23.0-27.0); VENOUS O2 SATURATION 76.5 % (60.0-80.0); VENOUS PARTIAL PRESSURE CO2 36.4 mmHg (38.0-50.0); VENOUS PARTIAL PRESSURE O2 40.9 mmHg (30.0-50.0); VENOUS PH 7.293 UNITS (7.330-7.430); VENOUS STANDARD HCO3 17.3 MMOL/L; VENOUS TOTAL CO2 18.3 MMOL/L (24.0-28.0)
[2025-01-02 06:27] LABS: BASO % 0.1 % (0.0-1.0); EOS % 0.1 % (0.0-3.0); HEMOGLOBIN 11.6 g/dl (12.0-15.5); LYMPH # 1.6 10^3/uL (1.5-5.0); LYMPH % 7.6 % (24.0-44.0); MEAN CORPUSCULAR HEMOGLOBIN 30.1 pg (27.0-33.0); MEAN CORPUSCULAR HGB CONC 34.1 g/dl (32.0-36.5); MEAN CORPUSCULAR VOLUME 88.1 fl (80.0-96.0); MONO # 2.5 10^3/uL (0.0-0.8); MONO % 11.7 % (2.0-8.0); NEUTROPHILS # 16.8 10^3/uL (1.5-8.5); NEUTROPHILS % 79.5 % (36.0-66.0); PLATELET COUNT, AUTOMATED 190 10^3/uL (150-450); RED BLOOD COUNT 3.86 10^6/uL (4.00-5.40); WHITE BLOOD COUNT 21.1 10^3/uL (4.0-10.0)
[2025-01-02 07:10] LABS: PROCALCITONIN 6.69 ng/ml
[2025-01-02 07:11] LABS: ALBUMIN 2.3 G/DL (3.2-5.2); ALKALINE PHOSPHATASE 86 U/L (35-104); ALT/SGPT 50 U/L (7.0-40); AST/SGOT 28 U/L (<34); BILIRUBIN,TOTAL 0.4 MG/DL (0.3-1.2); BLOOD UREA NITROGEN 16 MG/DL (9-23); CALCIUM LEVEL 7.3 MG/DL (8.3-10.6); CARBON DIOXIDE LEVEL 21 MMOL/L (20-31); CHLORIDE LEVEL 121 MMOL/L (98-107); CREATININE FOR GFR 0.72 MG/DL (0.55-1.30); GLOMERULAR FILTRATION RATE > 90.0 (>45); GLUCOSE, FASTING 180 MG/DL (74-106); POTASSIUM SERUM 5.1 MMOL/L (3.5-5.1); SODIUM LEVEL 151 MMOL/L (136-145); TOTAL PROTEIN 4.6 G/DL (5.7-8.2)
[2025-01-02] MEDS ORDERED: MIDODRINE 5 MG TAB PO PRN (07:55)
[2025-01-02] MEDS: PANTOPRAZOLE 40MG VIAL IV SCH (09:21)
[2025-01-02] MEDS: ENOXAPARIN 40MG/0.4ML SYRINGE (J1650 PER 10MG) SC SCH (09:21)
[2025-01-02] MEDS: cefTRIAXone SOD 1 GM in DEXTROSE 5% (D5W) ADV/MINI-BAG 50 ML IV SCH (09:22)
[2025-01-02] MEDS: LanTUS (INSULIN GLARGINE INJ) 1 UNITS/0.01 ML SC SCH (09:50)
[2025-01-02] MEDS ORDERED: GLUCOSE 4 GM CHEW PO PRN (12:00)
[2025-01-02] MEDS ORDERED: DEXTROSE 50% 50ML SYRINGE IV PRN (12:00)
[2025-01-02] MEDS ORDERED: GLUCAGON INJ 1MG VIAL SC PRN (12:00)
[2025-01-02] MEDS: LEVOTHYROXINE 88MCG TABLET (0.088 MG) PO SCH (14:58)
[2025-01-02 16:56] LABS: BLOOD UREA NITROGEN 12 MG/DL (9-23); CALCIUM LEVEL 7.6 MG/DL (8.3-10.6); CARBON DIOXIDE LEVEL 19 MMOL/L (20-31); CHLORIDE LEVEL 113 MMOL/L (98-107); CREATININE FOR GFR 0.66 MG/DL (0.55-1.30); GLOMERULAR FILTRATION RATE > 90.0 (>45); GLUCOSE, FASTING 328 MG/DL (74-106); POTASSIUM SERUM 5.2 MMOL/L (3.5-5.1); SODIUM LEVEL 141 MMOL/L (136-145)
[2025-01-02] MEDS: INSULIN LISPRO (NovoLOG) PER UNIT SC SCH ×2 (17:35→20:35)
[2025-01-02] MEDS: METOCLOPRAMIDE 5 MG TAB PO PRN (18:38)
[2025-01-02] MEDS: PATIROMER SORBITEX CALCIUM 8.4 GM POWDER PACKET (VELTASSA) PO ONE (18:38)
[2025-01-02] MEDS: ASPIRIN 81MG ENTERIC TABLET PO SCH (20:34)
[2025-01-02] MEDS: ATORVASTATIN 20 MG TAB PO SCH (20:34)
[2025-01-02] MEDS: VENLAFAXINE **XR** 75MG CAPSULE PO SCH (20:35)
[2025-01-03] VITALS (10 sets, daily range): BP systolic 104–122; BP diastolic 58–72; TEMP 98–98.6; O2SAT 92–100
[2025-01-03 05:29] LABS: BASO # 0.1 10^3/uL (0.0-0.2); BASO % 0.4 % (0.0-1.0); EOS # 0.4 10^3/uL (0.0-0.5); EOS % 3.3 % (0.0-3.0); HEMATOCRIT 30.2 % (36.0-47.0); HEMOGLOBIN 10.2 g/dl (12.0-15.5); LYMPH # 2.3 10^3/uL (1.5-5.0); LYMPH % 19.6 % (24.0-44.0); MEAN CORPUSCULAR HEMOGLOBIN 29.2 pg (27.0-33.0); MEAN CORPUSCULAR HGB CONC 33.8 g/dl (32.0-36.5); MEAN CORPUSCULAR VOLUME 86.5 fl (80.0-96.0); MONO # 0.7 10^3/uL (0.0-0.8); MONO % 5.8 % (2.0-8.0); NEUTROPHILS # 8.1 10^3/uL (1.5-8.5); NEUTROPHILS % 70.5 % (36.0-66.0); PLATELET COUNT, AUTOMATED 151 10^3/uL (150-450); RED BLOOD COUNT 3.49 10^6/uL (4.00-5.40); WHITE BLOOD COUNT 11.5 10^3/uL (4.0-10.0)
[2025-01-03 05:53] LABS: C REACTIVE PROTEIN QUANTITATIV 2.97 MG/DL (<1.0)
[2025-01-03 06:00] LABS: BLOOD UREA NITROGEN 8 MG/DL (9-23); CALCIUM LEVEL 7.7 MG/DL (8.3-10.6); CARBON DIOXIDE LEVEL 21 MMOL/L (20-31); CHLORIDE LEVEL 116 MMOL/L (98-107); CREATININE FOR GFR 0.61 MG/DL (0.55-1.30); GLOMERULAR FILTRATION RATE > 90.0 (>45); GLUCOSE, FASTING 117 MG/DL (74-106); MAGNESIUM LEVEL 1.9 MG/DL (1.8-2.4); PHOSPHORUS LEVEL 1.3 MG/DL (2.4-5.1); POTASSIUM SERUM 3.9 MMOL/L (3.5-5.1); PROCALCITONIN 3.25 ng/ml; SODIUM LEVEL 145 MMOL/L (136-145)
[2025-01-03] MEDS: CLOPIDOGREL 75 MG TAB PO SCH (08:57)
[2025-01-03] MEDS: LanTUS (INSULIN GLARGINE INJ) 1 UNITS/0.01 ML SC STA (10:42)
[2025-01-03] MEDS: METOCLOPRAMIDE 5 MG TAB PO SCH (12:38)
[2025-01-03] MEDS: INSULIN LISPRO (NovoLOG) PER UNIT SC SCH (13:00)
[2025-01-03] MEDS: POTASSIUM PHOSPHATE INJ 20 MMOL in D5W 250 ML IV ONE (14:17)
[2025-01-04 05:21] LABS: BASO % 0.4 % (0.0-1.0); EOS # 0.4 10^3/uL (0.0-0.5); HEMATOCRIT 30.7 % (36.0-47.0); HEMOGLOBIN 10.5 g/dl (12.0-15.5); LYMPH # 1.3 10^3/uL (1.5-5.0); LYMPH % 19.2 % (24.0-44.0); MEAN CORPUSCULAR HGB CONC 34.2 g/dl (32.0-36.5); MEAN CORPUSCULAR VOLUME 87.7 fl (80.0-96.0); MONO # 0.6 10^3/uL (0.0-0.8); MONO % 8.7 % (2.0-8.0); NEUTROPHILS # 4.6 10^3/uL (1.5-8.5); NEUTROPHILS % 65.4 % (36.0-66.0); PLATELET COUNT, AUTOMATED 145 10^3/uL (150-450)
[2025-01-04 05:36] LABS: C REACTIVE PROTEIN QUANTITATIV 1.72 MG/DL (<1.0)
[2025-01-04 05:44] LABS: PROCALCITONIN 1.22 ng/ml
[2025-01-04 05:46] LABS: BLOOD UREA NITROGEN 6 MG/DL (9-23); CALCIUM LEVEL 7.8 MG/DL (8.3-10.6); CARBON DIOXIDE LEVEL 26 MMOL/L (20-31); CHLORIDE LEVEL 111 MMOL/L (98-107); GLOMERULAR FILTRATION RATE > 90.0 (>45); GLUCOSE, FASTING 67 MG/DL (74-106); MAGNESIUM LEVEL 1.7 MG/DL (1.8-2.4); PHOSPHORUS LEVEL 3.3 MG/DL (2.4-5.1); POTASSIUM SERUM 3.8 MMOL/L (3.5-5.1); SODIUM LEVEL 145 MMOL/L (136-145)
[2025-01-04] MEDS: DEXTROSE 50% 50ML SYRINGE IV STA (07:21)
[2025-01-04] MEDS: CEFDINIR 300 MG CAP (OMNICEF) PO SCH (07:48)
[2025-01-04] MEDS: MAG SULF 1GM/100ML (MAG RUN) 1 GM in IV 1 EA IV ONE (07:48)
[2025-01-04 07:54] VITALS: BP 131/71; TEMP 97.7; O2SAT 99
[2025-01-04] MEDS: LanTUS (INSULIN GLARGINE INJ) 1 UNITS/0.01 ML SC SCH (08:34)
[2025-01-04 14:17] VITALS: BP 100/62; TEMP 96.8; O2SAT 98
[2025-01-04] MEDS: INSULIN LISPRO (NovoLOG) PER UNIT SC SCH (17:03)
[2025-01-04 20:10] VITALS: BP 118/64; TEMP 97.3; O2SAT 98
[2025-01-05 04:20] VITALS: BP 108/52; TEMP 97.2; O2SAT 97
[2025-01-05 06:17] LABS: BASO % 0.5 % (0.0-1.0); EOS # 0.4 10^3/uL (0.0-0.5); EOS % 7.7 % (0.0-3.0); HEMATOCRIT 32.3 % (36.0-47.0); LYMPH # 1.2 10^3/uL (1.5-5.0); LYMPH % 21.7 % (24.0-44.0); MEAN CORPUSCULAR HEMOGLOBIN 29.6 pg (27.0-33.0); MEAN CORPUSCULAR HGB CONC 34.1 g/dl (32.0-36.5); MEAN CORPUSCULAR VOLUME 86.8 fl (80.0-96.0); MONO # 0.6 10^3/uL (0.0-0.8); MONO % 10.9 % (2.0-8.0); NEUTROPHILS # 3.3 10^3/uL (1.5-8.5); NEUTROPHILS % 58.8 % (36.0-66.0); PLATELET COUNT, AUTOMATED 142 10^3/uL (150-450); RED BLOOD COUNT 3.72 10^6/uL (4.00-5.40); WHITE BLOOD COUNT 5.6 10^3/uL (4.0-10.0)
[2025-01-05 06:48] LABS: BLOOD UREA NITROGEN 8 MG/DL (9-23); CARBON DIOXIDE LEVEL 29 MMOL/L (20-31); CHLORIDE LEVEL 107 MMOL/L (98-107); CREATININE FOR GFR 0.58 MG/DL (0.55-1.30); GLOMERULAR FILTRATION RATE > 90.0 (>45); GLUCOSE, FASTING 168 MG/DL (74-106); MAGNESIUM LEVEL 1.8 MG/DL (1.8-2.4); PHOSPHORUS LEVEL 4.1 MG/DL (2.4-5.1); POTASSIUM SERUM 4.1 MMOL/L (3.5-5.1); SODIUM LEVEL 141 MMOL/L (136-145)
[2025-01-05] MEDS: LanTUS (INSULIN GLARGINE INJ) 1 UNITS/0.01 ML SC SCH (09:01)
[2025-01-05] MEDS ORDERED: LANTINJ4 SC (10:51)
[2025-01-05] MEDS ORDERED: FIAS100I2 SC (10:51)
[2025-01-05] MEDS: CEFDINIR 300 MG CAP (OMNICEF) PO ONE (11:46)
[2025-01-05 12:00] VITALS: BP 127/72; TEMP 97; O2SAT 99
== END 2025-01-05 14:16 | disposition home or self-care (01) | DRG 871 ==
LOC: EDBD 07:54 → M ED 07:54 → M ED INP 13:03 → M ICU 15:31 → M MSPAV 01-04 14:16
PROVIDERS: ADMIT Internal Medicine Critical Care Medicine; ATTEND Student in an Organized Health Care Education/Training Program
DX: A41.9 Sepsis, unspecified organism (principal); R65.21 Severe sepsis with septic shock; E11.10 Type 2 diabetes mellitus with ketoacidosis without coma; J84.9 Interstitial pulmonary disease, unspecified; N17.9 Acute kidney failure, unspecified; E87.0 Hyperosmolality and hypernatremia; I50.32 Chronic diastolic (congestive) heart failure; N39.0 Urinary tract infection, site not specified; E11.319 Type 2 diabetes mellitus with unspecified diabetic retinopathy without macular edema; I11.0 Hypertensive heart disease with heart failure; E11.43 Type 2 diabetes mellitus with diabetic autonomic (poly)neuropathy; I25.10 Atherosclerotic heart disease of native coronary artery without angina pectoris; I25.5 Ischemic cardiomyopathy; K21.9 Gastro-esophageal reflux disease without esophagitis; E03.9 Hypothyroidism, unspecified; F41.9 Anxiety disorder, unspecified; F32.A Depression, unspecified; E78.5 Hyperlipidemia, unspecified; Z79.4 Long term (current) use of insulin; E83.42 Hypomagnesemia; I25.2 Old myocardial infarction; E83.39 Other disorders of phosphorus metabolism; Z79.899 Other long term (current) drug therapy; Z87.891 Personal history of nicotine dependence; Z79.82 Long term (current) use of aspirin

== ENCOUNTER → 2025-01-30 | Outpatient (CLI) | payer MEDICARE, MEDICAID ==
[2025-01-30 12:16] LABS: THYROID STIMULATING HORMONE 22.284 uIU/ML (0.55-4.78)
[2025-01-30 12:19] LABS: ALBUMIN 3.7 G/DL (3.2-5.2); CALCIUM LEVEL 9.1 MG/DL (8.3-10.6); CREATININE FOR GFR 0.79 MG/DL (0.55-1.30); GLOMERULAR FILTRATION RATE 81.9 (>45); POTASSIUM SERUM 4.9 MMOL/L (3.5-5.1); TOTAL PROTEIN 6.7 G/DL (5.7-8.2)
[2025-01-30 12:30] LABS: HEMOGLOBIN A1c 8.8 % (4.0-6.0)
== END ==
LOC: M WUC 08:08
PROVIDERS: ATTEND Family Medicine
DX: E03.9 Hypothyroidism, unspecified (principal); E10.65 Type 1 diabetes mellitus with hyperglycemia

== ENCOUNTER → 2025-04-30 | Outpatient (REF) | payer MEDICARE, MEDICAID ==
[~2025-04-30] MED LIST changes: +ABIL1TAB11 PO; +HYDR-3364 PO; +LEVO100T5 PO; +METO5TAB2 PO; +NOVOINJ3 INJ; +TRAZ-252 PO
[2025-04-30 15:23] LABS: MALB URINE SIEMENS 29.0 MG/L
[2025-04-30 15:36] LABS: CREATININE, URINE 263.4 MG/DL; MAU/CREAT RATIO 11.0 MCG/MG (0.0-30.0)
== END ==
LOC: M SFHCLERA 14:17
DX: E11.65 Type 2 diabetes mellitus with hyperglycemia (principal)

== ENCOUNTER → 2025-09-07 | Outpatient (CLI) | payer MEDICAID, MEDICARE | LOC: M WHC 13:08 | PROVIDERS: ATTEND Obstetrics & Gynecology | DX: Z12.31 Encounter for screening mammogram for malignant neoplasm of breast (principal); R92.323 Mammographic fibroglandular density, bilateral breasts ==

== ENCOUNTER → 2025-09-07 | Outpatient (CLI) | payer MEDICAID, MEDICARE | LOC: M WHC 13:09 | PROVIDERS: ATTEND Obstetrics & Gynecology | DX: M85.89 Other specified disorders of bone density and structure, multiple sites (principal) ==

== ENCOUNTER → 2025-09-07 | Outpatient (REF) | payer MEDICARE, OTHER, MEDICAID ==
[2025-09-11 14:17] LABS: HPV APTIMA Not Detected (Not Detected)
== END ==
LOC: M SFHCWAGY 16:53
PROVIDERS: ATTEND Physician Assistant
DX: Z12.4 Encounter for screening for malignant neoplasm of cervix (principal)
CPT/HCPCS: 87624; G0123